=== PATIENT | female | born 1945 | race Caucasian/White ===

== ENCOUNTER → 2017-12-22 11:36 | Outpatient (CLI) | payer MEDICARE, OTHER, SELFPAY ==
[2017-12-22 12:44] LABS: Amphetamine Urine VISTA NEGATIVE (<1000 ng/mL); Barbiturate Urine VISTA NEGATIVE (< 200 ng/mL); Benzodiazepine Urine VISTA NEGATIVE (< 200 ng/mL); Cocaine Urine VISTA NEGATIVE (< 300 ng/mL); Ecstacy Urine VISTA NEGATIVE (< 500 ng/mL); Methadone Urine VISTA NEGATIVE (< 300 ng/mL); PCP Urine VISTA NEGATIVE (< 25 ng/mL); THC Urine VISTA NEGATIVE (< 50 ng/mL); Vista UDS pH Range 5
== END ==
PROVIDERS: Family Provider Preventive Medicine Occupational Medicine; PCP Preventive Medicine Occupational Medicine; Visit Provider Anesthesiology Pain Medicine
DX: F11.20 Opioid dependence, uncomplicated (principal)
CPT/HCPCS: 80307

== ENCOUNTER → 2018-05-04 14:45 | Outpatient (CLI) | payer MEDICARE, OTHER, SELFPAY ==
--- NOTE | 2018-05-04 14:49 | RAD_ITS ---
STUDY: X-RAY - LEFT SHOULDER REASON FOR EXAM: Pain. TECHNIQUE: 3 view(s) of the shoulder. COMPARISON: None. FINDINGS: There are marginal osteophytes, joint space narrowing and subchondral cystic change/sclerosis of the humeral head. There is mild acromioclavicular arthrosis. Normal acromion. There is narrowing of acromiohumeral distance suggestive of rotator cuff pathology. Normal visualized pulmonary apex. RAD/Shoulder min 2 Views IMPRESSION: Glenohumeral arthrosis. Mild acromioclavicular arthrosis. Narrowing of acromiohumeral distance suggestive of rotator cuff pathology. Electronically Signed: Cholo Pascual MD at 14:50 EST Tel , Service support ,
--- OUTSIDE RECORDS SUMMARY | 2018-08-06 02:57 | XMS RPT_ITS ---
:1945 Author Organization OHIP Support Name Relationship Address Phone PIYUSH MORELOS Unavailable Unavailable + VALERIE LIVE Unavailable Unavailable + CHI MORELOS Unavailable Unavailable + [place] [address] R Unavailable Unavailable Unavailable PIYUSH MORELOS Unavailable Unavailable + VALERIE LIVE Unavailable Unavailable + PIYUSH MORELOS Unavailable [address] + [place] [address] R Unavailable Unavailable Unavailable CHI MORELOS Unavailable . + ., [place] . R Unavailable Unavailable Unavailable PIYUSH MORELOS Unavailable Unavailable + VALERIE LIVE Unavailable Unavailable + DYAN LIVEEN Unavailable Unavailable + PIYUSH MORELOS Unavailable Unavailable + ELIZABETH PIYUSH Unavailable Unavailable + VALERIE LIVE Unavailable Unavailable + ELIZABETHFINESSEPIYUSH Unavailable Unavailable + ELIZABETH PIYUSH Unavailable Unavailable + VALERIE LIVE Unavailable Unavailable + ELIZABETH, PIYUSH Unavailable Unavailable + ELIZABETH, PIYUSH Unavailable Unavailable + DYAN LIVEEN Unavailable Unavailable + ELIZABETH, PIYUSH Unavailable Unavailable + ELIZABETH, PIYUSH Unavailable Unavailable + DYAN LIVEEN Unavailable Unavailable + ELIZABETH PIYUSH Unavailable Unavailable + ELIZABETH, PIYUSH Unavailable Unavailable + VALERIE LIVE Unavailable Unavailable + ELIZABETH, PIYUSH Unavailable [address] + [place] [address] R Unavailable Unavailable Unavailable ELIZABETH, PIYUSH Unavailable Unavailable + ELIZABETH, PIYUSH Unavailable Unavailable + CALOS, VALERIE Unavailable Unavailable + ELIZABETH, PIYUSH Unavailable Unavailable + ELIZABETH, PIYUSH Unavailable Unavailable + CALOS, VALERIE Unavailable Unavailable + ELIZABETH, PIYUSH Unavailable Unavailable + ELIZABETH, PIYUSH Unavailable Unavailable + CALOS, VALERIE Unavailable Unavailable + ELIZABETH, PIYUSH Unavailable Unavailable + ELIZABETH, PIYUSH Unavailable Unavailable + CALOS, VALERIE Unavailable Unavailable + ELIZABETH, PIYUSH Unavailable Unavailable + ELIZABETH, PIYUSH Unavailable Unavailable + CALOS, VALERIE Unavailable Unavailable + ELIZABETH, PIYUSH Unavailable Unavailable + ELIZABETH, PIYUSH Unavailable Unavailable + CALOS, VALERIE Unavailable Unavailable + ELIZABETH, PIYUSH Unavailable Unavailable + ELIZABETH, PIYUSH Unavailable Unavailable + CALOS, VALERIE Unavailable Unavailable + ELIZABETH, PIYUSH Unavailable Unavailable + ELIZABETH, PIYUSH Unavailable Unavailable + CALOS, VALERIE Unavailable Unavailable + Care Team Providers Name Role Phone TESTRAIVON CARVAJAL Referring Unavailable TESTRAKEIVON Attending Unavailable TESTRAIVON CARVAJAL Referring Unavailable TESTRAIVON CARVAJAL Referring Unavailable TESTRAWEI, IVON Attending Unavailable TESTIVON PACE Referring Unavailable LINA VALERIO MD Attending Unavailable RAISA FLEMING Primary Care Unavailable LINA VALERIO MD Attending Unavailable RAISA FLEMING Primary Care Unavailable RAISA FLEMING Attending Unavailable RAISA FLEMING Referring Unavailable RAISA FLEMING Primary Care Unavailable LINA VALERIO MD Attending Unavailable RAISA FLEMING Primary Care Unavailable TAE PONCE MD Attending Unavailable CARLOSRAISA Primary Care Unavailable LINA VALERIO MD Attending Unavailable CARLOSRAISA Primary Care Unavailable LINA VALERIO MD Attending Unavailable CARLOS, RAISA Primary Care Unavailable LINA VALERIO MD Attending Unavailable CARLOSRAISA Primary Care Unavailable DEANGELO MORILLO MD Attending Unavailable RAISA FLEMING Primary Care Unavailable DEANGELO MORILLO MD Attending Unavailable CRALOS, RAISA Primary Care Unavailable CARLOS, RAISA Primary Care Unavailable GORDON MAHARAJ MD Admitting Unavailable GORDON MAHARAJ MD Attending Unavailable RAISA FLEMING Consulting Unavailable GORDON MAHARAJ MD Consulting Unavailable GORDON SHEEHAN Consulting Unavailable JOSÉ MIGUEL PERSAUD Attending Unavailable CARLOS, RAISA Primary Care Unavailable CARLOS, RAISA Attending Unavailable CARLOS, RAISA Primary Care Unavailable DEANGELO MORILLO MD Attending Unavailable CARLOS, RAISA Primary Care Unavailable DEANGELO MORILLO MD Consulting Unavailable DEANGELO MORILLO MD Admitting Unavailable CONRAD ELMORE MD Consulting Unavailable RAISA FLEMING Attending Unavailable CARLOS, RAISA Primary Care Unavailable CARLOS, RAISA Primary Care Unavailable YOHAN ORTIZ MD. RAISA Kendrick Admitting Unavailable YOHAN ORTIZ MD. RAISA Kendrick Attending Unavailable Kym Live Attending Unavailable Raisa Fleming Referring Unavailable Kym Live Attending Unavailable Kym Live Referring Unavailable Raisa Fleming Primary Care Unavailable Kym Live Attending Unavailable Kym Live Referring Unavailable Raisa Fleming Primary Care Unavailable Klever Johnson Attending Unavailable Klever Johnson Referring Unavailable Raisa Fleming Primary Care Unavailable PROBLEMS PROBLEMS DATE TYPE CONDITION / CODE ATTENDING STATUS SOURCE 05/04/2018 Unknown M25.512 - Pain in [place], Active [facility] left shoulder / [facility] M25.512(ICD-10) Hospital Repository 02/17/2018 Active Charcot's joint, NA Active [facility] left ankle and foot [facility] [place] / M14.672(ICD-10) Repository 02/17/2018 Active Charcot's joint, NA Active [facility] right ankle and [facility] [place] foot / Repository M14.671(ICD-10) 02/17/2018 Active Vitamin D NA Active [facility] deficiency, [facility] [place] unspecified / Repository E55.9(ICD-10) 02/17/2018 Active Pain, unspecified / NA Active [facility] R52(ICD-10) [facility] [place] Repository 12/22/2017 Unknown F11.20 - Opioid Basali, [place] Active [facility] dependence, Community uncomplicated / Hospital F11.20(ICD-10) Repository PROCEDURES PROCEDURES No Procedure Records FoundRESULTS RESULTS CBC Collected: 06/09/2018 Status: F Source: [facility] 5:12 AM [facility] REPOSITORY TYPE CODE TESTS RESULT OUT OF REFERENCE UNITS RANGE LAB WBC(LOINC) 4.60-10.80 10 3/mcL WBC 10.20 LAB RBCCT(LOINC 4.20-5.40 10 6/mcL ) RBC 5.12 LAB HGB(LOINC) 12.0-16.0 G/dL Hgb 13.5 LAB HCT(LOINC) 37.0-47.0 % Hct 41.0 LAB MCV(LOINC) 80.0-94.0 fL MCV 80.1 LAB MCH(LOINC) 27.0-31.2 pg Low MCH 26.3 LAB MCHC(LOINC) 33.0-37.0 G/dL Low MCHC 32.8 LAB RDW(LOINC) 11.5-14.5 % RDW 14.2 LAB PLT(LOINC) 130-400 10 3/mcL Platelet 163 LAB MPV(LOINC) 7.4-10.4 fL MPV 10.3 Performed By: #### CBC, ADIFF, ANEU #### [address] [address] #### MG, CMP, GFR #### [address] [address] .AUTO DIFF Collected: 06/09/2018 Status: F Source: [facility] 5:12 AM [facility] REPOSITORY TYPE CODE TESTS RESULT OUT OF REFERENCE UNITS RANGE LAB KRISTIN(LOINC) 37.0-80.0 % Neutrophil % 77.3 LAB LYM(LOINC) 10.0-50.0 % Lymphocyte % 13.4 LAB MON(LOINC) 1.7-13.0 % Monocyte % 8.3 LAB EO(LOINC) 0.0-7.0 % Eosinophil % 0.5 LAB BAS(LOINC) 0.0-2.5 % Basophil % 0.5 LAB ABLYM(LOIN 0.77-3.85 10 3/mcL C) Lymphocyte, 1.40 Absolute LAB BENNY(LOINC 0.15-1.00 10 3/mcL ) Monocyte, 0.80 Absolute LAB AEOS(LOINC 0.00-0.40 10 3/mcL ) Eosinophil, 0.10 Absolute LAB ABAS(LOINC 0.00-0.19 10 3/mcL ) Basophil, 0.10 Absolute Performed By: #### CBC, ADIFF, ANEU #### [place] [id number] #### MG, CMP, GFR #### [place] [address] .NEUABS Collected: 06/09/2018 Status: F Source: [facility] 5:12 AM [facility] REPOSITORY TYPE CODE TESTS RESULT OUT OF REFERENCE UNITS RANGE LAB ANEU(LOINC) 2.85-6.16 10 3/mcL High Neutrophil, 7.80 Absolute Performed By: #### CBC, ADIFF, ANEU #### [place] [address] #### MG, CMP, GFR #### [place] [address] MG Collected: 06/09/2018 Status: F Source: [facility] 5:12 AM [facility] REPOSITORY TYPE CODE TESTS RESULT OUT OF REFERENCE UNITS RANGE LAB MG(LOINC) 1.8-2.4 mg/dL High Magnesium Lvl 2.5 Performed By: #### CBC, ADIFF, ANEU #### [place] [id number] #### MG, CMP, GFR #### [place] [address] CMP Collected: 06/09/2018 Status: F Source: [facility] 5:12 AM [facility] REPOSITORY TYPE CODE TESTS RESULT OUT OF REFERENCE UNITS RANGE LAB GLU(LOINC) 83-110 mg/dL Glucose Level 103 LAB NA(LOINC) 136-145 mmol/L Sodium Level 143 LAB K(LOINC) 3.5-5.1 mmol/L Low Potassium Level 3.3 LAB CL(LOINC) 98-107 mmol/L Chloride 106 LAB CO2(LOINC) 23-31 mmol/L CO2 28 LAB EBAL(LOINC mEq/L ) Electrolyte Balance 9.0 LAB BUN(LOINC) 7-18 mg/dL BUN High 29 LAB CRE(LOINC) 0.55-1.02 mg/dL Creatinine Lvl (s) 0.92 LAB BC(LOINC) 7-27 ratio High BUN/Creatinine 32 Ratio LAB CA(LOINC) 8.4-10.2 mg/dL Low Calcium Lvl 8.2 LAB PROT(LOINC 6.4-8.2 G/dL ) Low Total Protein 5.9 LAB ALB(LOINC) 3.4-4.8 G/dL Low Albumin Level 2.7 LAB GLB(LOINC) G/dL Globulin 3.2 LAB AG(LOINC) 1.1-2.5 ratio Low A/G Ratio 0.8 LAB BILT(LOINC 0.2-1.0 mg/dL ) Bili Total 0.6 LAB AP(LOINC) 40-135 U/L Low Alk Phos 36 LAB AST(LOINC) 10-40 U/L AST/SGOT High 60 LAB ALT(LOINC) 10-35 U/L ALT/SGPT 30 Performed By: #### CBC, ADIFF, ANEU #### [address] [address] #### MG, CMP, GFR #### [address] [address] .GFR Collected: 06/09/2018 Status: F Source: [facility] 5:12 AM [facility] REPOSIT[facility] TYPE CODE TESTS RESULT OUT OF REFERENCE UNITS RANGE LAB GFRAA(LOINC ml/min/1.73 ) sqm GFR 73 Armenian Result Comment: GFR Population mean for , Non- Americans Ages 20-29 = 116 mL/min/1.73 sq.m. Ages 30-39 = 107 mL/min/1.73 sq.m. Ages 40-49 = 99 mL/min/1.73 sq.m. Ages 50-59 = 93 mL/min/1.73 sq.m. Ages 60-69 = 85 mL/min/1.73 sq.m. Ages 70+ = 75 mL/min/1.73 sq.m. Chronic Kidney Disease: Less than 60 mL/min/1.73 square meters End Stage Renal Disease: Less than 15 mL/min/1.73 square meters LAB GFRNO(LOINC) ml/min/1.73sqm GFR Non- 60 Result Comment: GFR Population mean for , Non- Americans Ages 20-29 = 116 mL/min/1.73 sq.m. Ages 30-39 = 107 mL/min/1.73 sq.m. Ages 40-49 = 99 mL/min/1.73 sq.m. Ages 50-59 = 93 mL/min/1.73 sq.m. Ages 60-69 = 85 mL/min/1.73 sq.m. Ages 70+ = 75 mL/min/1.73 sq.m. Chronic Kidney Disease: Less than 60 mL/min/1.73 square meters End Stage Renal Disease: Less than 15 mL/min/1.73 square meters Performed By: #### CBC, ADIFF, ANEU #### [address] [address] #### MG, CMP, GFR #### [place] [address] LAC Collected: 06/08/2018 Status: F Source: [facility] 9:02 PM [facility] REPOSITORY TYPE CODE TESTS RESULT OUT OF REFERENCE UNITS RANGE LAB LAC(LOINC) 0.4-2.0 mmol/L Lactic Acid 1.0 Lvl Performed By: #### LAC #### [place] [address] LAC Collected: 06/08/2018 Status: F Source: [facility] 3:38 PM [facility] REPOSITORY TYPE CODE TESTS RESULT OUT OF REFERENCE UNITS RANGE LAB LAC(LOINC) 0.4-2.0 mmol/L High Lactic Acid 3.1 Lvl Performed By: #### LAC #### [place] [address] CK Collected: 06/08/2018 Status: F Source: [facility] 10:47 AM [facility] REPOSITORY TYPE CODE TESTS RESULT OUT OF RANGE REFERENCE UNITS LAB CK(LOINC) 26-192 U/L High CPK 1286 Performed By: #### CK #### [place] [address] Observed: 06/08/2018 Status: P Source: [facility] 10:47 AM [facility] REPOSITORY . MICRO - Microbiology PROCEDURE: Blood Culture (bacterial) [*1] SOURCE: Blood BODY SITE: COLLECTED DATE/TIME: 06/08/2018 10:47 EST RECEIVED DATE/TIME: 06/08/2018 15:26 EST START DATE/TIME: 06/08/2018 15:27 EST FREE TEXT SOURCE: PRELIMINARY REPORTS Preliminary Report [] Verified Date/Time/Personnel: 06/08/2018 16:00 EST Culture has been received in lab and is no growth to date. Routine cultures are held for 5 days. Performing Locations *1: This test was performed at: [address] Performed By: #### CBL #### [place] [address] Observed: 06/08/2018 Status: P Source: [facility] 10:47 AM [facility] REPOSITORY . MICRO - Microbiology PROCEDURE: Blood Culture (bacterial) [*1] SOURCE: Blood BODY SITE: COLLECTED DATE/TIME: 06/08/2018 10:47 EST RECEIVED DATE/TIME: 06/08/2018 15:26 EST START DATE/TIME: 06/08/2018 15:27 EST FREE TEXT SOURCE: PRELIMINARY REPORTS Preliminary Report [] Verified Date/Time/Personnel: 06/08/2018 16:00 EST Culture has been received in lab and is no growth to date. Routine cultures are held for 5 days. Performing Locations *1: This test was performed at: [address] Performed By: #### CBL #### [place] [address] Observed: 06/08/2018 Status: P Source: [facility] 10:47 AM [facility] REPOSITORY . MICRO - Microbiology PROCEDURE: Urine Culture [*1] SOURCE: Urine, Clean Catch BODY SITE: COLLECTED DATE/TIME: 06/08/2018 10:47 EST RECEIVED DATE/TIME: 06/08/2018 15:19 EST START DATE/TIME: 06/08/2018 15:19 EST FREE TEXT SOURCE: PRELIMINARY REPORTS Preliminary Report [] Verified Date/Time/Personnel: 06/09/2018 13:58 EST Culture results pending. Performing Locations *1: This test was performed at: [facility], [address] [place] [address], [id number] , [facility] Performed By: #### CUR #### [address] [address] [address] HEAD OR BRAIN W/O Observed: 06/08/2018 Status: F Source: [facility] CONTRAST 10:10 AM [facility] REPOSITORY ORIGINAL CT HEAD OR BRAIN W/O CONTRAST Clinical Statement: Altered mental status. TECHNIQUE: Axial CT images from skull base to vertex without IV contrast. This exam was performed according to our departmental dose optimization program, and includes the following measures where appli cable: automated exposure control, adjustment of the mAs and/or kVp according to patient size and/or exam, and an iterative reconstruction algorithm. COMPARISON: 03/20/2017 FINDINGS: There is no acute intracranial hemorrhage, mass, mass effect or abnormal extra-axial fluid collection. No CT evidence for acute infarction. The density in the larger dural venous sinuses is gr ossly normal. The ventricles are are stable. There is mild cerebral volume loss. 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 The skull base and calvarium demonstrate no abnormality. The included paranasal sinuses and mastoid air cells are clear. IMPRESSION: No acute intracranial abnormality. Interpreted By: Gus Ospina Preliminary Report By: Gus Ospina Electronically Signed By: Gus Ospina Dictated Date: 06/08/2018 10:21:03 AM Prelim Date: 06/08/2018 10:21:03 AM Sign Date: 06/08/2018 10:22:44 AM XR CHEST 1 VIEW Observed: 06/08/2018 Status: F Source: [facility] 10:10 AM [facility] REPOSITORY ORIGINAL XR CHEST 1 VIEW PORTABLE AP TIME: 10:03:34 CLINICAL STATEMENT: SOB. COMPARISON: CT thorax-10/08/2014, CXR-06/08/2018, 01/21/2018 QUALITY: Evaluation is technically difficult due to patient lordosis and body habitus. FINDINGS: No focal consolidation, pleural effusion, or pneumothorax is identified. The cardiomediastinal contours are unchanged but poorly visualized. No acute displaced fractures are identified. Degenerative rehana nges are noted in the shoulder joints. Surgical sebastián are noted projecting over the upper thorax. IMPRESSION: No acute findings. I have personally reviewed the images of this examination and agree with the resident's findings and interpretation. Interpreted By: Gus Vega MD Preliminary Report By: Wilbur Kim DO Electronically Signed By: Gus Vega MD Dictated Date: 06/08/2018 10:17:27 AM Prelim Date: 06/08/2018 10:55:29 AM Sign Date: 06/08/2018 11:06:20 AM CBC Collected: 06/08/2018 Status: C Source: [facility] 9:27 AM [facility] REPOSITORY TYPE CODE TESTS RESULT OUT OF RANGE REFERENCE UNITS LAB WBC(LOINC) 4.60-10.80 10 3/mcL Abnormal Alert WBC 22.30 LAB RBCCT(LOIN 4.20-5.40 10 6/mcL C) High RBC 6.01 LAB HGB(LOINC) 12.0-16.0 G/dL Hgb 15.9 LAB HCT(LOINC) 37.0-47.0 % High Hct 48.1 LAB MCV(LOINC) 80.0-94.0 fL MCV 80.0 LAB MCH(LOINC) 27.0-31.2 pg Low MCH 26.4 LAB MCHC(LOINC 33.0-37.0 G/dL ) MCHC 33.0 LAB RDW(LOINC) 11.5-14.5 % RDW 14.3 LAB PLT(LOINC) 130-400 10 3/mcL Platelet 204 LAB MPV(LOINC) 7.4-10.4 fL MPV 9.8 Performed By: #### CBC, DIFF, MORPH #### [place] [address] [place], [place] [address] #### TROP, MG, CMP, GFR, LAC #### [address] [address] TROP Collected: 06/08/2018 Status: F Source: [facility] 9:27 AM [facility] REPOSITORY TYPE CODE TESTS RESULT OUT OF REFERENCE UNITS RANGE LAB TROP(LOINC) 0.000-0.040 ng/mL Troponin <0.020 Result Comment: Troponin I reference range: 0.00-0.040 ng/mL Negative and non-diagnostic. >0.040 ng/mL Consistent with cardiac damage, increased clinical risk and possibility of myocardial infarction. Serial measurements, a rise & fall in test results, clinical history, appropriate symptoms and/or ECG changes may help assess possibility of MO. *Other non-acute coronary syndrome conditions such as CHF, myocarditis, pulmonary emboli, sepsis and cardiac surgery could result in myocardial damage and increased troponin levels. Performed By: #### CBC, DIFF, MORPH #### [place] [address] [place], [place] [address] #### TROP, MG, CMP, GFR, LAC #### [address] [address] MG Collected: 06/08/2018 Status: F Source: [facility] 9:27 AM [facility] REPOSITORY TYPE CODE TESTS RESULT OUT OF REFERENCE UNITS RANGE LAB MG(LOINC) 1.8-2.4 mg/dL Low Magnesium Lvl 1.5 Performed By: #### CBC, DIFF, MORPH #### [place] [address] [place], [place] [address] #### TROP, MG, CMP, GFR, LAC #### [address] [address] CMP Collected: 06/08/2018 Status: F Source: [facility] 9:27 AM [facility] REPOSITORY TYPE CODE TESTS RESULT OUT OF REFERENCE UNITS RANGE LAB GLU(LOINC) 83-110 mg/dL Glucose High Level 159 LAB NA(LOINC) 136-145 mmol/L Sodium Level 141 LAB K(LOINC) 3.5-5.1 mmol/L Potassium Level 3.5 LAB CL(LOINC) 98-107 mmol/L Chloride 100 LAB CO2(LOINC) 23-31 mmol/L CO2 23 LAB EBAL(LOINC mEq/L ) Electrolyte Balance 18.0 LAB BUN(LOINC) 7-18 mg/dL BUN High 23 LAB CRE(LOINC) 0.55-1.02 mg/dL Creatinine High Lvl (s) 1.58 LAB BC(LOINC) 7-27 ratio BUN/Creatinine 15 Ratio LAB CA(LOINC) 8.4-10.2 mg/dL Calcium Lvl 9.3 LAB PROT(LOINC 6.4-8.2 G/dL ) Total Protein 8.2 LAB ALB(LOINC) 3.4-4.8 G/dL Albumin Level 4.0 LAB GLB(LOINC) G/dL Globulin 4.2 LAB AG(LOINC) 1.1-2.5 ratio Low A/G Ratio 1.0 LAB BILT(LOINC 0.2-1.0 mg/dL ) Bili Total High 1.8 LAB AP(LOINC) 40-135 U/L Alk Phos 54 LAB AST(LOINC) 10-40 U/L AST/SGOT High 54 LAB ALT(LOINC) 10-35 U/L ALT/SGPT 29 Performed By: #### CBC, DIFF, MORPH #### [facility] [address] [place] [address] #### TROP, MG, CMP, GFR, LAC #### [address] [address] .GFR Collected: 06/08/2018 Status: F Source: [facility] 9:27 AM [facility] REPOSITORY TYPE CODE TESTS RESULT OUT OF REFERENCE UNITS RANGE LAB GFRAA(LOINC ml/min/1.73 ) sqm GFR 39 Armenian Result Comment: GFR Population mean for , Non- Americans Ages 20-29 = 116 mL/min/1.73 sq.m. Ages 30-39 = 107 mL/min/1.73 sq.m. Ages 40-49 = 99 mL/min/1.73 sq.m. Ages 50-59 = 93 mL/min/1.73 sq.m. Ages 60-69 = 85 mL/min/1.73 sq.m. Ages 70+ = 75 mL/min/1.73 sq.m. Chronic Kidney Disease: Less than 60 mL/min/1.73 square meters End Stage Renal Disease: Less than 15 mL/min/1.73 square meters LAB GFRNO(LOINC) ml/min/1.73sqm GFR Non- 32 Result Comment: GFR Population mean for , Non- Americans Ages 20-29 = 116 mL/min/1.73 sq.m. Ages 30-39 = 107 mL/min/1.73 sq.m. Ages 40-49 = 99 mL/min/1.73 sq.m. Ages 50-59 = 93 mL/min/1.73 sq.m. Ages 60-69 = 85 mL/min/1.73 sq.m. Ages 70+ = 75 mL/min/1.73 sq.m. Chronic Kidney Disease: Less than 60 mL/min/1.73 square meters End Stage Renal Disease: Less than 15 mL/min/1.73 square meters Performed By: #### CBC, DIFF, MORPH #### [address] [address] #### TROP, MG, CMP, GFR, LAC #### [address] [address] .MANUAL DIFF Collected: 06/08/2018 Status: F Source: [facility] 9:27 AM [facility] REPOSITORY TYPE CODE TESTS RESULT OUT OF REFERENCE UNITS RANGE LAB NEUM(LOINC 37.0-80.0 % ) High Neutrophil %, 82.0 Manual LAB LYMM(LOINC 10.0-50.0 % ) Low Lymphocyte %, 4.0 Manual LAB MONM(LOINC 1.7-13.0 % ) Monocyte %, Manual 4.0 LAB EOM(LOINC) 0.0-7.0 % Eosinophil %, 0.0 Manual LAB BASM(LOINC 0.0-2.5 % ) Basophil %, Manual 0.0 LAB BAND(LOINC 0.0-5.0 % ) Bands High 10.0 LAB ANEUM(LOIN 2.85-6.16 10 3/mcL C) High Neutrophil, Abs 20.50 Manual LAB ABLYMM(NIKHIL 0.77-3.85 10 3/mcL NC) Lymphocyte, Abs 0.90 Manual LAB AMONM(LOIN 0.15-1.00 10 3/mcL C) Monocyte, Abs 0.90 Manual LAB AEOSM(LOIN 0.00-0.40 10 3/mcL C) Eosinophil, Abs 0.00 Manual LAB ABASM(LOIN 0.00-0.19 10 3/mcL C) Basophil, Abs 0.00 Manual Performed By: #### CBC, DIFF, MORPH #### [address] [address] #### TROP, MG, CMP, GFR, LAC #### [address] [address] .MORPH Collected: 06/08/2018 Status: F Source: [facility] 9:27 AM [facility] REPOSITORY TYPE CODE TESTS RESULT OUT OF REFERENCE UNITS RANGE LAB PLTE(LOINC ) Platelet Normal Estimate LAB TGR(LOINC) Toxic Gran Moderate Performed By: #### CBC, DIFF, MORPH #### [place] [address] [place], [place] [address] #### TROP, MG, CMP, GFR, LAC #### [address] [address] LAC Collected: 06/08/2018 Status: F Source: [facility] 9:27 AM [facility] REPOSITORY TYPE CODE TESTS RESULT OUT OF REFERENCE UNITS RANGE LAB LAC(LOINC) 0.4-2.0 mmol/L High Lactic Acid 3.1 Lvl Performed By: #### CBC, DIFF, MORPH #### [address] [address] #### TROP, MG, CMP, GFR, LAC #### [address] [address] UA Collected: 06/08/2018 Status: F Source: [facility] 9:27 AM [facility] REPOSITORY TYPE CODE TESTS RESULT OUT OF RANGE REFERENCE UNITS LAB SPCUA(LOIN C) UA Specimen Type Catheter LAB CLRUA(LOIN C) Unknown UA Color Red LAB APPUA(LOIN Clear C) Unknown UA Appear Turbid LAB SGUA(LOINC ) UA X Spec Grav Result Comment: Unable to perform due to color interference LAB GLUA(LOINC) Negative mg/dL UA Glucose Negative LAB BILUA(LOINC) X UA Bili Result Comment: Unable to perform due to color interference LAB KETUA(LOINC) mg/dL UA Ketones X Result Comment: Unable to perform due to color interference LAB BLDUA(LOINC) Negative Unknown UA Blood Large LAB PHUA(LOINC) UA pH X Result Comment: Unable to perform due to color interference LAB PROUA(LOINC) mg/dL UA Protein X Result Comment: Unable to perform due to color interference LAB UROUA(LOINC) E.U./dL UA Urobilinogen X Result Comment: Unable to perform due to color interference LAB NITUA(LOINC) UA Nitrite X Result Comment: Unable to perform due to color interference LAB LEUUA(LOINC) UA Leuk Est X Result Comment: Unable to perform due to color interference Performed By: #### UA, UAMICAO #### [address] [address] .URINALYSIS MICROSCOPIC Collected: 06/08/2018 Status: F Source: [facility] 9:27 AM [facility] REPOSITORY TYPE CODE TESTS RESULT OUT OF RANGE REFERENCE UNITS LAB WBCUA(LOIN None Seen /hpf C) Unknown UA WBC LOADED LAB RBCUA(LOIN None Seen /hpf C) Unknown UA RBC LOADED LAB EPIUA(LOIN None Seen /hpf C) Unknown UA Squam Epithelial 5-10 LAB MUCUA(LOIN /hpf C) UA Mucous 3+ LAB BACUA(LOIN /hpf C) Unknown UA Bacteria 4+ LAB FGRNC(LOIN /lpf C) Unknown UA Fine Granular Casts 0-5 Performed By: #### UA, UAMICAO #### [address] [address] CBC Collected: 05/06/2018 Status: F Source: [facility] 4:28 PM [facility] REPOSITORY TYPE CODE TESTS RESULT OUT OF REFERENCE UNITS RANGE LAB WBC(LOINC) 4.60-10.80 10 3/mcL WBC 8.20 LAB RBCCT(LOINC 4.20-5.40 10 6/mcL ) RBC 5.33 LAB HGB(LOINC) 12.0-16.0 G/dL Hgb 14.3 LAB HCT(LOINC) 37.0-47.0 % Hct 43.9 LAB MCV(LOINC) 80.0-94.0 fL MCV 82.4 LAB MCH(LOINC) 27.0-31.2 pg Low MCH 26.9 LAB MCHC(LOINC) 33.0-37.0 G/dL Low MCHC 32.7 LAB RDW(LOINC) 11.5-14.5 % High RDW 15.1 LAB PLT(LOINC) 130-400 10 3/mcL Platelet 175 LAB MPV(LOINC) 7.4-10.4 fL MPV 9.9 Performed By: #### CBC, ADIFF, ANEU #### [address] [address] #### CMP, TSH, GFR #### [address] [address] .AUTO DIFF Collected: 05/06/2018 Status: F Source: [facility] 4:28 [facility] HEALTH REPOSITORY TYPE CODE TESTS RESULT OUT OF REFERENCE UNITS RANGE LAB KRISTIN(LOINC) 37.0-80.0 % Neutrophil % 58.6 LAB LYM(LOINC) 10.0-50.0 % Lymphocyte % 30.0 LAB MON(LOINC) 1.7-13.0 % Monocyte % 9.1 LAB EO(LOINC) 0.0-7.0 % Eosinophil % 1.8 LAB BAS(LOINC) 0.0-2.5 % Basophil % 0.5 LAB ABLYM(LOIN 0.77-3.85 10 3/mcL C) Lymphocyte, 2.50 Absolute LAB BENNY(LOINC 0.15-1.00 10 3/mcL ) Monocyte, 0.70 Absolute LAB AEOS(LOINC 0.00-0.40 10 3/mcL ) Eosinophil, 0.10 Absolute LAB ABAS(LOINC 0.00-0.19 10 3/mcL ) Basophil, 0.00 Absolute Performed By: #### CBC, ADIFF, ANEU #### [address] [address] #### CMP, TSH, GFR #### [place] [address] .NEUABS Collected: 05/06/2018 Status: F Source: [facility] 4:28 [facility] REPOSITORY TYPE CODE TESTS RESULT OUT OF REFERENCE UNITS RANGE LAB ANEU(LOINC) 2.85-6.16 10 3/mcL Neutrophil, 4.80 Absolute Performed By: #### CBC, ADIFF, ANEU #### [address] [address] #### CMP, TSH, GFR #### [place] [address] CMP Collected: 05/06/2018 Status: F Source: [facility] 4:28 [facility] REPOSITORY TYPE CODE TESTS RESULT OUT OF REFERENCE UNITS RANGE LAB GLU(LOINC) 83-110 mg/dL Glucose Level 86 LAB NA(LOINC) 136-145 mmol/L Sodium Level 143 LAB K(LOINC) 3.5-5.1 mmol/L Potassium Level 4.4 LAB CL(LOINC) 98-107 mmol/L Chloride 103 LAB CO2(LOINC) 23-31 mmol/L CO2 High 33 LAB EBAL(LOINC mEq/L ) Electrolyte Balance 7.0 LAB BUN(LOINC) 7-18 mg/dL BUN High 20 LAB CRE(LOINC) 0.55-1.02 mg/dL Creatinine Lvl (s) 0.86 LAB BC(LOINC) 7-27 ratio BUN/Creatinine 23 Ratio LAB CA(LOINC) 8.4-10.2 mg/dL Calcium Lvl 8.8 LAB PROT(LOINC 6.4-8.2 G/dL ) Total Protein 7.5 LAB ALB(LOINC) 3.4-4.8 G/dL Albumin Level 3.8 LAB GLB(LOINC) G/dL Globulin 3.7 LAB AG(LOINC) 1.1-2.5 ratio Low A/G Ratio 1.0 LAB BILT(LOINC 0.2-1.0 mg/dL ) Bili Total 0.3 LAB AP(LOINC) 40-135 U/L Alk Phos 41 LAB AST(LOINC) 10-40 U/L AST/SGOT 26 LAB ALT(LOINC) 10-35 U/L ALT/SGPT 22 Performed By: #### CBC, ADIFF, ANEU #### [address] [address] #### CMP, TSH, GFR #### [place] [address] TSH Collected: 05/06/2018 Status: F Source: [facility] 4:28 PM [facility] REPOSITORY TYPE CODE TESTS RESULT OUT OF RANGE REFERENCE UNITS LAB TSH(LOINC) 0.36-3.74 mcIU/mL TSH 1.11 Performed By: #### CBC, ADIFF, ANEU #### [address] [address] #### CMP, TSH, GFR #### [address] [address] .GFR Collected: 05/06/2018 Status: F Source: [facility] 4:28 PM [facility] REPOSITORY TYPE CODE TESTS RESULT OUT OF REFERENCE UNITS RANGE LAB GFRAA(LOINC ml/min/1.73 ) sqm GFR 79 Armenian Result Comment: GFR Population mean for , Non- Americans Ages 20-29 = 116 mL/min/1.73 sq.m. Ages 30-39 = 107 mL/min/1.73 sq.m. Ages 40-49 = 99 mL/min/1.73 sq.m. Ages 50-59 = 93 mL/min/1.73 sq.m. Ages 60-69 = 85 mL/min/1.73 sq.m. Ages 70+ = 75 mL/min/1.73 sq.m. Chronic Kidney Disease: Less than 60 mL/min/1.73 square meters End Stage Renal Disease: Less than 15 mL/min/1.73 square meters LAB GFRNO(LOINC) ml/min/1.73sqm GFR Non- 65 Result Comment: GFR Population mean for , Non- Americans Ages 20-29 = 116 mL/min/1.73 sq.m. Ages 30-39 = 107 mL/min/1.73 sq.m. Ages 40-49 = 99 mL/min/1.73 sq.m. Ages 50-59 = 93 mL/min/1.73 sq.m. Ages 60-69 = 85 mL/min/1.73 sq.m. Ages 70+ = 75 mL/min/1.73 sq.m. Chronic Kidney Disease: Less than 60 mL/min/1.73 square meters End Stage Renal Disease: Less than 15 mL/min/1.73 square meters Performed By: #### CBC, ADIFF, ANEU #### Sally [address] [address] #### CMP, TSH, GFR #### [address] [address] ORTHOPEDIC VISIT Observed: 05/04/2018 Status: F Source: [facility] 4:15 PM [facility] REPOSITORY [facility] [address] [place] [address] OFFICE VISIT Date of Service: 05/04/18 MR#: [id number] Acct: [id number] Name: LAUREEN MORELOS Rep #: [id number] : 1945 Provider: Kym Live DO Age/Sex: 72/F Location: [facility] Status: Signed Intake Intake Visit Reasons: LEFT SHOULDER Is patient in pain?: Yes Pain scale (1-10): 8 Allergies No Known Allergies Allergy (Unverified 05/04/18 14:37) Medications Aclidinium [place] [Tudorza Pressair] 400 mcg IH BID 07/10/13 [History Confirmed 03/14/14] Budesonide/Formoterol 160/4.5 [Symbicort 160/4.5 Mcg Inhaler (SP)] 2 puff INHALATION BID 07/10/13 [History Confirmed 03/14/14] Celecoxib [Celebrex] 100 mg PO DAILY 07/10/13 [History Confirmed 03/14/14] Duloxetine Hcl [Cymbalta] 60 mg PO QHS 07/10/13 [History Confirmed 03/14/14] Hydrocodone/Acetaminophen [Vicodin 5-300 mg Tablet] 1 tab PO Q6H PRN PRN 07/10/13 [History Confirmed 03/14/14] Levothyroxine [Synthroid] 150 mcg PO DAILY 07/10/13 [History Confirmed 03/14/14] Lisinopril 20 mg PO QHS 07/10/13 [History Confirmed 03/14/14] Metoprolol Tartrate [Lopressor (beta ariel)] 50 mg PO BID 07/10/13 [History Confirmed 03/14/14] Pramipexole Di-HCl [Mirapex] 1.5 mg PO QHS 07/10/13 [History Confirmed 03/14/14] Pregabalin [Lyrica] 150 mg PO BID 07/10/13 [History Confirmed 03/14/14] traZODone [Desyrel] 100 mg PO QHS 07/10/13 [History Confirmed 03/14/14] [facility] Medical History A-fib (Acute) Asthma (Acute) Surgical History H/O: hysterectomy (Acute) h/o thyroid removal (Acute) Social History Smoking Status: Former smoker pack-years: 2 HPI LEFT SHOULDER: Details: LAUREEN MORELOS is a 72 year old F here today for left shoulder pain. She states that she has had left shoulder pain for a few years. She denies any known injury. Patient has pain over her lateral shoulder and into her elbow. She has increased pain with laying on her shoulder. Patient has limited range of motion. She has shoulder weakness. Patient states that she has had injections by Dr Johnson into her shoulder. Her last injection was in February which was helpful for a few weeks. Patient denies any formal physical therapy. She denies any xrays or MRI of her shoulder. Denies numbness, tingling or other associated symptoms. She takes hydrocodone for pain. patient states last injection within 1-2 months, pain is 8/10. affecting adls, cant roll onto shoulder bc of pain. ROS Const Reports system reviewed and no additional complaints, except as docu Eyes Reports system reviewed and no additional complaints, except as docu ENT Reports system reviewed and no additional complaints, except as docu Card Reports system reviewed and no additional complaints, except as docu Resp Reports system reviewed and no additional complaints, except as docu GI Reports system reviewed and no additional complaints, except as docu Reports system reviewed and no additional complaints, except as docu Musc Reports joint pain, Reports muscle weakness, Reports limited joint movement Skin/Breast Reports system reviewed and no additional complaints, except as docu Neuro Yes system reviewed and no additional complaints, except as docu Psych Reports system reviewed and no additional complaints, except as docu Endo Reports system reviewed and no additional complaints, except as docu Ortho Exam Left Shoulder Testing: Yes TTP Biceps, Yes AROM-Forward Elevation 0-180 (75), Yes AROM-External Rotation at side 0-60, Yes Neer's, Yes Speed's, Yes Hawkin's Internal Rotation: Buttock SHOULDER: 80 flexion/abduction Assessment AND Plan Problems 1. Osteoarthritis of left glenohumeral joint M19.012 Plan Obtained X-rays of patient'sleft shoulder. Personally reviewed x-rays. There is no obvious fracture, dislocation, or lucency noted. severe gh oa left shoulder. stiffness, just received injection with minimal relief here for other options. discussed treatment options- nothing, injection, PT or a new shoulder- would need MRI/CT for evaluation of surgical options and discussion with dr stock. at this point, not interested in a new shoulder bc a month ago. discussed aquatic therapy and gave a prescription today. return if she wants to try an injection here. Follow up as needed or sooner if pain, swelling, numbness or associated symptoms, or concerns develop. All questions answered. Patient in agreement of plan. Orders Orders: Coding Level of Care Code Off vis,new,level 3 Diagnoses Osteoarthritis of left glenohumeral joint M19.012 05/04/18 1615 <Electronically signed by Kym Live DO> Date Kym Live DO Cosigner Signature: Date (if applicable) CC: Klever Johnson MD SHOULDER MIN 2 VIEWS Observed: 05/04/2018 Status: F Source: [place] 2:49 PM [facility] REPOSITORY [facility] Imaging Services [address] [place] [id number] Shoulder min 2 Views MR#: [id number] Acct: [id number] Name: ELIZABETHLAUREEN Mir Rep #: [id number] : 1945 F 72 From: Cholo Pascual MD PCP: Raisa Fleming DO Status: REG CLI Study: Shoulder min 2 Views Date of Exam: 05/04/18 Exam# [id number] Ordering Dr: Kym Live DO STUDY: X-RAY - LEFT SHOULDER REASON FOR EXAM: Pain. TECHNIQUE: 3 view(s) of the shoulder. COMPARISON: None. FINDINGS: There are marginal osteophytes, joint space narrowing and subchondral cystic change/sclerosis of the humeral head. There is mild acromioclavicular arthrosis. Normal acromion. There is narrowing of acromiohumeral distance suggestive of rotator cuff pathology. Normal visualized pulmonary apex. RAD/Shoulder min 2 Views IMPRESSION: Glenohumeral arthrosis. Mild acromioclavicular arthrosis. Narrowing of acromiohumeral distance suggestive of rotator cuff pathology. Electronically Signed: Cholo Pascual MD at 14:50 EST Tel , Service support , CC: Kym Live DO; Raisa Fleming DO Aemt: Signed FINAL SURGICAL Observed: 03/08/2018 Status: F Source: [facility] PATHOLOGY REPORT 1:21 PM [facility] REPOSITORY . Pathology Reports Accession: Collected Date/Time: Received Date/Time: Pathologist: [id number] 03/08/2018 13:21 EDT 03/08/2018 13:21 EDT DO SIMON NDIAYE Final Surgical Pathology Report DIAGNOSIS: THYROID, RIGHT LOBE -- ADENOMATOUS GOITER WITH DEGENERATIVE CHANGES AND CALCIFICATION. NEGATIVE FOR MALIGNANCY. CLINICAL INFORMATION: Procedure: RIGHT THYROID LOBECTOMY POSSIBLE TOTAL THYROIDECTOMY Preoperative diagnosis: NONTOXIC MULTINODULAR GOITER Postoperative diagnosis: SAME SPECIMEN: A THYROID- RIGHT INTRAOPERATIVE CONSULTATION: FS: ADENOMATOUS GOITER. NO MALIGNANCY ON FROZEN SECTION. dictated by Richard Ndiaye D.O. GROSS DESCRIPTION: Received fresh for intraoperative consultation labeled right thyroid is a 12 g, 5 x 3 x 2.4 cm product of a right thyroid lobectomy. The outer surface is red and ranges from smooth to rough. The specimen is inked and sectioned to show a few johnson-red nodules measuring up to 2.2 cm in greatest dimension. The largest nodule displays some johnson-yellow stippling. A customer sales representative section of the largest nodule is submitted for frozen section diagnosis. The remaining parenchyma is dark red and shows usual fine architecture. RS -7 Dictated by Tammy SPEAR ([facility]) MICROSCOPIC DESCRIPTION: Slides reviewed. Electronically Signed by Pathology Report verified by [facility] Electronically signed by SIMON NDIAYE DO Sign out Date: 03/09/2018 14:36 Performing Lab: [facility], [address] [place] [address] Performed By: #### SPFR #### [place] [address] CBC Collected: 03/08/2018 Status: F Source: [facility] 10:19 AM [facility] REPOSITORY TYPE CODE TESTS RESULT OUT OF REFERENCE UNITS RANGE LAB WBC(LOINC) 4.50-10.80 10 3/mcL WBC 6.10 LAB RBCCT(LOINC 4.10-5.30 10 6/mcL ) High RBC 5.33 LAB HGB(LOINC) 12.0-16.0 G/dL Hgb 14.3 LAB HCT(LOINC) 34.0-46.0 % Hct 43.5 LAB MCV(LOINC) 80.0-99.0 fL MCV 81.6 LAB MCH(LOINC) 27.0-33.0 pg Low MCH 26.8 LAB MCHC(LOINC) 32.0-36.0 G/dL MCHC 32.8 LAB RDW(LOINC) 11.5-15.5 % High RDW 15.8 LAB PLT(LOINC) 150-450 10 3/mcL Platelet 155 LAB MPV(LOINC) 6.6-10.5 fL MPV 9.5 Performed By: #### CBC, ADIFF, ANEU, FIB, APTT, PRO #### [address] [address] .AUTO DIFF Collected: 03/08/2018 Status: F Source: [facility] 10:19 AM [facility] REPOSITORY TYPE CODE TESTS RESULT OUT OF REFERENCE UNITS RANGE LAB KRISTIN(LOINC) 50.0-75.0 % Neutrophil % 63.3 LAB LYM(LOINC) 20.0-40.0 % Lymphocyte % 23.8 LAB MON(LOINC) 2.0-13.0 % Monocyte % 10.3 LAB EO(LOINC) 0.0-6.0 % Eosinophil % 1.9 LAB BAS(LOINC) 0.0-2.5 % Basophil % 0.7 LAB ABLYM(LOIN 0.90-4.32 10 3/mcL C) Lymphocyte, 1.50 Absolute LAB BENNY(LOINC 0.09-1.40 10 3/mcL ) Monocyte, 0.60 Absolute LAB AEOS(LOINC 0.00-0.65 10 3/mcL ) Eosinophil, 0.10 Absolute LAB ABAS(LOINC 0.00-0.27 10 3/mcL ) Basophil, 0.00 Absolute Performed By: #### CBC, ADIFF, ANEU, FIB, APTT, PRO #### [address] [address] .NEUABS Collected: 03/08/2018 Status: F Source: [facility] 10:19 AM [facility] REPOSITORY TYPE CODE TESTS RESULT OUT OF REFERENCE UNITS RANGE LAB ANEU(LOINC) 2.25-8.10 10 3/mcL Neutrophil, 3.90 Absolute Performed By: #### CBC, ADIFF, ANEU, FIB, APTT, PRO #### [facility] [address] [place] [address] FIB Collected: 03/08/2018 Status: F Source: [facility] 10:19 AM [facility] REPOSITORY TYPE CODE TESTS RESULT OUT OF REFERENCE UNITS RANGE LAB FIB(LOINC) 250-550 mg/dL High Fibrinogen 683 Performed By: #### CBC, ADIFF, ANEU, FIB, APTT, PRO #### [place] [id number] [place] [address] APTT Collected: 03/08/2018 Status: F Source: [facility] 10:19 AM [facility] REPOSITORY TYPE CODE TESTS RESULT OUT OF REFERENCE UNITS RANGE LAB PDOSE(LOIN C) Heparin dose Unknown (APTT) LAB APTT0(LOIN 25.0-35.0 seconds C) High APTT 43.2 Result Comment: For Heparin anticoagulation therapy, the recommended therapeutic range is: 54-77 seconds (APTT Correlation with Anti-Xa therapeutic range of 0.3-0.7 units/ml). PLEASE REFERENCE THE PHARMACY PROTOCOL FOR DOSING. Performed By: #### CBC, ADIFF, ANEU, FIB, APTT, PRO #### [place] [id number] [place] [address] PRO Collected: 03/08/2018 Status: F Source: [facility] 10:19 AM [facility] REPOSITORY TYPE CODE TESTS RESULT OUT OF REFERENCE UNITS RANGE LAB PT(LOINC) 9.0-14.6 seconds Protime 11.9 Result Comment: Effective 11/30/07, Protime results may be affected by some antibiotics (i.e. Ciprofloxacin, Azithromycin, Bactrim) which may potentiate the action of oral anticoagulants, with further increases in Protime/INR. LAB INR(LOINC) ratio PT International Ratio 1.0 Result Comment: The [employer] (CHEST, 1992, 102:312S-25S) recommended therapeutic range for oral anticoagulant therapy is: LOW RISK: Prophylaxis of venous thrombosis INR: 2.0-3.0 Treatment of pulmonary embolism 2.0-3.0 Prevention of systemic embolism 2.0-3.0 HIGH RISK: Mechanical prosthetic valves 2.5-3.5 Performed By: #### CBC, ADIFF, ANEU, FIB, APTT, PRO #### [address] [address] HGB Collected: 03/08/2018 Status: F Source: [facility] 10:19 AM [facility] REPOSITORY TYPE CODE TESTS RESULT OUT OF RANGE REFERENCE UNITS LAB HGB(LOINC) 12.0-16.0 G/dL Hgb 14.3 Performed By: #### HGB, BMP, GFR #### [place] [address] BMP Collected: 03/08/2018 Status: F Source: [facility] 10:19 AM [facility] REPOSITORY TYPE CODE TESTS RESULT OUT OF REFERENCE UNITS RANGE LAB GLU(LOINC) 82-115 mg/dL Glucose Level 95 LAB NA(LOINC) 136-145 mEq/L Sodium Level 141 LAB K(LOINC) 3.5-5.0 mEq/L Potassium Level 3.9 LAB CL(LOINC) 98-110 mEq/L Chloride 104 LAB CO2(LOINC) 22-32 mEq/L CO2 29 LAB EBAL(LOINC 4.0-15.0 mEq/L ) Electrolyte Balance 8.0 LAB BUN(LOINC) 8.0-22.0 mg/dL BUN 22.0 LAB CRE(LOINC) 0.50-1.20 mg/dL Creatinine Lvl (s) 0.73 LAB BC(LOINC) 10.0-22.0 ratio High BUN/Creatinine 30.1 Ratio LAB CA(LOINC) 8.4-10.1 mg/dL Calcium Lvl 8.4 Performed By: #### HGB, BMP, GFR #### [address] [address] .GFR Collected: 03/08/2018 Status: F Source: [facility] 10:19 AM [facility] REPOSITORY TYPE CODE TESTS RESULT OUT OF REFERENCE UNITS RANGE LAB GFRAA(LOINC ml/min/1.73 ) sqm GFR >60 Armenian Result Comment: GFR Population mean for , Non- Americans Ages 20-29 = 116 mL/min/1.73 sq.m. Ages 30-39 = 107 mL/min/1.73 sq.m. Ages 40-49 = 99 mL/min/1.73 sq.m. Ages 50-59 = 93 mL/min/1.73 sq.m. Ages 60-69 = 85 mL/min/1.73 sq.m. Ages 70+ = 75 mL/min/1.73 sq.m. Chronic Kidney Disease: Less than 60 mL/min/1.73 square meters End Stage Renal Disease: Less than 15 mL/min/1.73 square meters LAB GFRNO(LOINC) ml/min/1.73sqm GFR Non- >60 Result Comment: GFR Population mean for , Non- Americans Ages 20-29 = 116 mL/min/1.73 sq.m. Ages 30-39 = 107 mL/min/1.73 sq.m. Ages 40-49 = 99 mL/min/1.73 sq.m. Ages 50-59 = 93 mL/min/1.73 sq.m. Ages 60-69 = 85 mL/min/1.73 sq.m. Ages 70+ = 75 mL/min/1.73 sq.m. Chronic Kidney Disease: Less than 60 mL/min/1.73 square meters End Stage Renal Disease: Less than 15 mL/min/1.73 square meters Performed By: #### HGB, BMP, GFR #### [address] [address] PROGRESS Observed: 03/03/2018 Status: COMPLETED Source: [place] 11:10 AM [facility] REPOSITORY [facility] ID: [id number] Author: Ivon Strong Service: (none) Author Type: Physician Type: Progress Notes Filed: 03/03/2018 11:41 AM Note Text: Follow up podiatric office visit for: Chief Complaint: This 72 year old who presents for follow up:b/l midfoot/possible charcot arthropathy Patient has been wearing b/l surgical shoes. We have discussed casting vs boot but she was unable to do so because of b/l involvement and also her was recently hospitalized for chf. Patient has been wearing b/l surgical shoes She states that she has been using wheel chair when she is out of the house but in the house, she has been full ambulatory. She did get fitted for b/l afo yesterday She has new xrays to review. Patient states the pain is getting better Of note, patient did have xrays of b/l feet in 2016 that she did bring in Patient denies hx of diabetes Patient does complain of painful toenails of b/l feet PAIN EVALUATION 03/03/2018 Pain Score: 3 Pain Location: Other: See Comment bilateral ankle Description: Dull Duration Amount of Time: 2 Duration Units: Months Frequency: Intermittent Intervention: Reposition;Relaxation No results found for: HBA1C PCP: No primary care provider on file. PAST MEDICAL HISTORY Diagnosis Date - A-fib (HCC) - Fibromyalgia - HTN (hypertension) - RLS (restless legs syndrome) - Vitamin D deficiency Current Outpatient Prescriptions: VITAMIN D 50,000 unit capsule Take 1 capsule by mouth once each week. HYDROcodone-Acetaminophen (NORCO) 7.5-325 mg per tablet Take 1 tablet by mouth three times daily. LYRICA 150 mg capsule Take 1 capsule by mouth twice daily. tiZANidine (ZANAFLEX) 4 mg tablet Take 1 tablet by mouth once daily. tolterodine ER (DETROL LA) 4 mg 24 hr capsule Take 1 capsule by mouth once daily. traZODone (DESYREL) 100 mg tablet Take 1 tablet by mouth daily at bedtime. LISINOPRIL ORAL Take 10 mg by mouth once daily. Once daily levothyroxine sodium (SYNTHROID ORAL) Take 50 mcg by mouth. METOPROLOL TARTRATE ORAL Take 50 mg by mouth twice daily. rivaroxaban (XARELTO) 20 mg tablet Take 20 mg by mouth daily with dinner. budesonide-formoterol (SYMBICORT) 160-4.5 mcg/actuation inhaler Inhale 2 Puffs as instructed twice daily. ramelteon (ROZEREM) 8 mg tablet Take 8 mg by mouth daily at bedtime. pramipexole (MIRAPEX) 1 mg tablet Take 1 mg by mouth three times daily. Dexlansoprazole (DEXILANT) 60 mg CpDM Take by mouth. alendronate (FOSAMAX) 70 mg tablet Take 70 mg by mouth once each week. escitalopram oxalate (LEXAPRO) 10 mg tablet Take 10 mg by mouth once daily. No current facility-administered medications for this visit. ALLERGIES Allergen Reactions - Duragesic [Fentanyl] Other: See Comments PAST SURGICAL HISTORY Procedure Laterality Date - APPENDECTOMY - CHOLECYSTECTOMY 1995 - PAST SURGICAL HISTORY OF 3 back surgeries -1999 - PAST SURGICAL HISTORY OF spinal cord stimulator - TOTAL KNEE REPLACEMENT REVIEW OF SYSTEMS: CONSTITUTIONAL: No fevers, chills, nightsweats, unintended weight loss HEENT: Denies frequent or severe heaches, nasal congestion/sinus symptoms, problematic allergy problems. EYES: No diplopia or blurry vision. CARDIOVASCULAR: No chest pain, dyspnea, palpitations, orthopnea, PND, ankle edema. PULM: No dyspnea, unexplained cough. GI: No dysphagia/odynophagia, problematic reflux, constipation, diarrhea, changes in stool habits, hematochezia, melena. : No new urinary complaints, including dysuria, gross hematuria or pyuria. NEURO: No new balance problems, peripheral weakness/paresthesias or numbness of concern. MUSC-SKEL: Arthritis of b/l midfoot PSY: No concerns regarding depression, anxiety or panic. INTEGUMENTARY: No new skin changes (rash, new or changing mole, new growth) Physical Exam: Constitutional: Pt is a well developed 72 year old female who is alert, oriented, cooperative and in no apparent distress. OBJECTIVE: NVSI unchanged from previous visit. Dermatological: Nails 1-5 b/l are thick, discolored, painful. Webspaces clean and dry 1-4 b/l. Skin appears well hydrated and supple. good color, texture, turgor. No open lesions present. No callosities present. Musculoskeletal/Orthopaedic: Patient has no pain to palpation of b/l feet There is flatfoot deformity b/l with midfoot spurring b/l There is minimal swelling of b/l foot. There is no increased warmth of b/l foot xrays of b/l foot reviewed today and compared to xrays on February 17. xrays were reviewed from 2016 that patient presented to clinic with. There appears to be midfoot arthritis with no change from 2016 ASSESSMENT: (M14.672) Charcot's joint of left ankle (primary encounter diagnosis) (M14.671) Charcot ankle, right (B35.1) Onychomycosis (M79.675) Pain in toe of left foot (M79.674) Pain in toe of right foot PLAN: 1. History and physical examination completed today. 2. Discussed midfoot arthritis b/l. This could be component of charcot vs midfoot arthritis. Reviewed xrays from today, February 17 and 2015. There appears to be no change from 2016. Suspect more arthritic than acute charcot. She has been using surgical shoe and her pain has subsided. I discussed casting but she declined. I discussed surgical options but she states this is not an option. She understands this deformity could progress and result in further destruction in the event this is charcot. Being that xrays show no major change from 2016, she has elected to pursue continued conservative care. Continue with surgical shoe and await afo. Repeat xrays in 1 month 3. Toenails 1-5 b/l debrided in length and thickness Ivon Strong DPM PROGRESS Observed: 03/03/2018 Status: COMPLETED Source: [place] 11:03 AM [facility] REPOSITORY [facility] ID: [id number] Author: Jsoee Rivers RN Service: (none) Author Type: (none) Type: Progress Notes Filed: 03/03/2018 11:41 AM Note Text: AMB ROOMING INTAKE FLOWSHEET DATA Risk Screening Do you have concerns about personal safety or safety in the home?: No Pain Pain Score: 3/10 Pain Location: Other: See Comment (bilateral ankle) Description: Dull Duration Amount of Time: 2 Duration Units: Months Frequency: Intermittent Intervention: Reposition, Relaxation Patient presents for f/u on charcot of B/L feet. She c/o mild pain when she is on her feet. Pt presents to clinic in wheelchair but states at home she is full WB in bilateral post op shoes. She states she has a wheelchair ordered by [employer] and she is waiting for it to come in. She also reports that she had an appointment at [facility] yesterday and had molds taken for braces. Continues to take Vitamin D. She has a new XR to review. PROGRESS Observed: 03/03/2018 Status: COMPLETED Source: [place] 10:51 AM [facility] REPOSITORY [facility] ID: [id number] Author: Estella Fajardo (Rt) Service: (none) Author Type: Watch Case Polisher Type: Progress Notes Filed: 03/03/2018 10:51 AM Note Text: Radiology Service Progress Note PATIENT NAME: Laureen Morelos DATE OF SERVICE: March 03, 2018 TIME: 10:51 AM PATIENT IDENTITY VERIFICATION COMPLETED USING TWO (2) METHODS: Patient confirmed name verbally and Date of . PATIENT GENDER DATA: Female. status: : No status: NO. PATIENT RELEVANT IMPLANT DATA REVIEWED: Not Applicable RADIOLOGY DEPARTMENT: General X-ray: Exam(s) Completed: Lower Extremity X-Ray(s): Feet, Bilateral and Wt. Bearing: PERIPHERAL IV DATA: Not applicable SIGNED BY: RT Scotty March 03, 2018 10:51 AM XR FOOT 3V AP/LAT/OBL Observed: 03/03/2018 Status: F Source: [facility] 10:50 AM [facility] REPOSITORY * * *Final Report* * * DATE OF EXAM: Mar 03 2018 10:50AM WRX [id number] - XR FOOT 3V AP/LAT/OBL JAJA / PROCEDURE REASON: multiple diagnoses * * * * Physician Interpretation * * * * BILATERAL FOOT TECHNIQUE: AP view of both feet; lateral and oblique views of each foot: 5 images HISTORY: Charcot joints COMPARISON: 02/17/2018 RESULT: Right: Severe pes planus deformity is present. There is severe subluxation at the naviculocuneiform articulations. There is lateral subluxation at the second tarsometatarsal articulation. The naviculocuneiform articulations and all of the tarsometatarsal articulations demonstrate moderate osteoarthrosis with joint space narrowing and articular surface irregularity and osteophytes. There is also mild to moderate narrowing at the talonavicular joint and mild narrowing at the calcaneocuboid joint overall with severe narrowing along the lateral aspect of the joint. The MTP and the IP joints are unremarkable. Left: Severe pes planus deformity is present. There is mild subluxation at the naviculocuneiform articulations. There is severe glenohumeral O-medial cuneiform joint space narrowing with articular surface erosive, irregularity and osteophyte formation. There is moderate narrowing in all of the tarsometatarsal articulation with articular surface irregularity and osteophyte formation. Mild joint space narrowing is present at the first MTP joint accompanied by osteophyte formation. The remaining MTP and the IP joints are unremarkable. IMPRESSION: CHARCOT CHANGES BILATERALLY, RIGHT GREATER THAN LEFT. NO SIGNIFICANT INTERVAL CHANGE. Aemt: DANIELA Transcribe Date/Time: Mar 03 2018 11:39A Dictated by : CARROLL MATTHEWS MD This examination was interpreted and the report reviewed and electronically signed by: CARROLL MATTHEWS MD on Mar 03 2018 11:43AM EST [id number] CNOV Observed: 03/03/2018 Status: COMPLETED Source: [place] 10:25 AM [facility] REPOSITORY Office Visit (PODIWS) LAUREEN MORELOS ([id number]) 1945 F Date Time Provider Department 03/03/18 10:25 AM IV[facility] STRONG PODIWS During your visit today, we recorded the following information about you: Josee Rivers RN 03/03/2018 11:41 AM Signed AMB ROOMING INTAKE FLOWSHEET DATA Risk Screening Do you have concerns about personal safety or safety in the home?: No Pain Pain Score: 3/10 Pain Location: Other: See Comment (bilateral ankle) Description: Dull Duration Amount of Time: 2 Duration Units: Months Frequency: Intermittent Intervention: Reposition, Relaxation Patient presents for f/u on charcot of B/L feet. She c/o mild pain when she is on her feet. Pt presents to clinic in wheelchair but states at home she is full WB in bilateral post op shoes. She states she has a wheelchair ordered by [employer] and she is waiting for it to come in. She also reports that she had an appointment at [facility] yesterday and had molds taken for braces. Continues to take Vitamin D. She has a new XR to review. Ivon Strong DPM 03/03/2018 11:41 AM Signed Follow up podiatric office visit for: Chief Complaint: This 72 year old who presents for follow up:b/l midfoot/possible charcot arthropathy Patient has been wearing b/l surgical shoes. We have discussed casting vs boot but she was unable to do so because of b/l involvement and also her was recently hospitalized for chf. Patient has been wearing b/l surgical shoes She states that she has been using wheel chair when she is out of the house but in the house, she has been full ambulatory. She did get fitted for b/l afo yesterday She has new xrays to review. Patient states the pain is getting better Of note, patient did have xrays of b/l feet in 2016 that she did bring in Patient denies hx of diabetes Patient does complain of painful toenails of b/l feet PAIN EVALUATION 03/03/2018 Pain Score: 3 Pain Location: Other: See Comment bilateral ankle Description: Dull Duration Amount of Time: 2 Duration Units: Months Frequency: Intermittent Intervention: Reposition;Relaxation No results found for: HBA1C PCP: No primary care provider on file. PAST MEDICAL HISTORY Diagnosis Date - A-fib (HCC) - Fibromyalgia - HTN (hypertension) - RLS (restless legs syndrome) - Vitamin D deficiency Current Outpatient Prescriptions: VITAMIN D 50,000 unit capsule Take 1 capsule by mouth once each week. HYDROcodone-Acetaminophen (NORCO) 7.5-325 mg per tablet Take 1 tablet by mouth three times daily. LYRICA 150 mg capsule Take 1 capsule by mouth twice daily. tiZANidine (ZANAFLEX) 4 mg tablet Take 1 tablet by mouth once daily. tolterodine ER (DETROL LA) 4 mg 24 hr capsule Take 1 capsule by mouth once daily. traZODone (DESYREL) 100 mg tablet Take 1 tablet by mouth daily at bedtime. LISINOPRIL ORAL Take 10 mg by mouth once daily. Once daily levothyroxine sodium (SYNTHROID ORAL) Take 50 mcg by mouth. METOPROLOL TARTRATE ORAL Take 50 mg by mouth twice daily. rivaroxaban (XARELTO) 20 mg tablet Take 20 mg by mouth daily with dinner. budesonide-formoterol (SYMBICORT) 160-4.5 mcg/actuation inhaler Inhale 2 Puffs as instructed twice daily. ramelteon (ROZEREM) 8 mg tablet Take 8 mg by mouth daily at bedtime. pramipexole (MIRAPEX) 1 mg tablet Take 1 mg by mouth three times daily. Dexlansoprazole (DEXILANT) 60 mg CpDM Take by mouth. alendronate (FOSAMAX) 70 mg tablet Take 70 mg by mouth once each week. escitalopram oxalate (LEXAPRO) 10 mg tablet Take 10 mg by mouth once daily. No current facility-administered medications for this visit. ALLERGIES Allergen Reactions - Duragesic [Fentanyl] Other: See Comments PAST SURGICAL HISTORY Procedure Laterality Date - APPENDECTOMY - CHOLECYSTECTOMY 1995 - PAST SURGICAL HISTORY OF 3 back surgeries -1999 - PAST SURGICAL HISTORY OF spinal cord stimulator - TOTAL KNEE REPLACEMENT REVIEW OF SYSTEMS: CONSTITUTIONAL: No fevers, chills, nightsweats, unintended weight loss HEENT: Denies frequent or severe heaches, nasal congestion/sinus symptoms, problematic allergy problems. EYES: No diplopia or blurry vision. CARDIOVASCULAR: No chest pain, dyspnea, palpitations, orthopnea, PND, ankle edema. PULM: No dyspnea, unexplained cough. GI: No dysphagia/odynophagia, problematic reflux, constipation, diarrhea, changes in stool habits, hematochezia, melena. : No new urinary complaints, including dysuria, gross hematuria or pyuria. NEURO: No new balance problems, peripheral weakness/paresthesias or numbness of concern. MUSC-SKEL: Arthritis of b/l midfoot PSY: No concerns regarding depression, anxiety or panic. INTEGUMENTARY: No new skin changes (rash, new or changing mole, new growth) Physical Exam: Constitutional: Pt is a well developed 72 year old female who is alert, oriented, cooperative and in no apparent distress. OBJECTIVE: NVSI unchanged from previous visit. Dermatological: Nails 1-5 b/l are thick, discolored, painful. Webspaces clean and dry 1-4 b/l. Skin appears well hydrated and supple. good color, texture, turgor. No open lesions present. No callosities present. Musculoskeletal/Orthopaedic: Patient has no pain to palpation of b/l feet There is flatfoot deformity b/l with midfoot spurring b/l There is minimal swelling of b/l foot. There is no increased warmth of b/l foot xrays of b/l foot reviewed today and compared to xrays on February 17. xrays were reviewed from 2016 that patient presented to clinic with. There appears to be midfoot arthritis with no change from 2016 ASSESSMENT: (M14.672) Charcot's joint of left ankle (primary encounter diagnosis) (M14.671) Charcot ankle, right (B35.1) Onychomycosis (M79.675) Pain in toe of left foot (M79.674) Pain in toe of right foot PLAN: 1. History and physical examination completed today. 2. Discussed midfoot arthritis b/l. This could be component of charcot vs midfoot arthritis. Reviewed xrays from today, February 17 and 2015. There appears to be no change from 2016. Suspect more arthritic than acute charcot. She has been using surgical shoe and her pain has subsided. I discussed casting but she declined. I discussed surgical options but she states this is not an option. She understands this deformity could progress and result in further destruction in the event this is charcot. Being that xrays show no major change from 2016, she has elected to pursue continued conservative care. Continue with surgical shoe and await afo. Repeat xrays in 1 month 3. Toenails 1-5 b/l debrided in length and thickness Ivon Strong DPM Referring Provider: IVON STRONG [[id number]] Allergies As of Date: 03/03/2018 Noted Allergy Reaction DURAGESIC (FENTANYL) 02/17/2018 14 - Other: See Comments Date Reviewed: 03/03/2018 Reviewed by: Josee Rivers RN - Fully Assessed Reason for Visit: Follow Up [171] Primary Visit Diagnosis:Charcot's joint of left ankle [M14.672] Other Visit Diagnoses:Charcot ankle, right [M14.671] Onychomycosis [B35.1] Pain in toe of left foot [M79.675] Pain in toe of right foot [M79.674] Prescriptions as of 03/03/2018 Sig: VITAMIN D2 50,000 UNIT CAPSULE Take 1 capsule by mouth once * HYDROCODONE 7.5 MG-ACETAMINOP* Take 1 tablet by mouth three * LYRICA 150 MG CAPSULE Take 1 capsule by mouth twice* TIZANIDINE 4 MG TABLET Take 1 tablet by mouth once d* TOLTERODINE ER 4 MG CAPSULE,E* Take 1 capsule by mouth once * TRAZODONE 100 MG TABLET Take 1 tablet by mouth daily * LISINOPRIL ORAL Take 10 mg by mouth once uri* SYNTHROID ORAL Take 50 mcg by mouth. METOPROLOL TARTRATE ORAL Take 50 mg by mouth twice wilver* RIVAROXABAN 20 MG TABLET Take 20 mg by mouth daily wit* BUDESONIDE-FORMOTEROL HFA 160* Inhale 2 Puffs as instructed * RAMELTEON 8 MG TABLET Take 8 mg by mouth daily at b* PRAMIPEXOLE 1 MG TABLET Take 1 mg by mouth three time* DEXLANSOPRAZOLE 60 MG CAPSULE* Take by mouth. ALENDRONATE 70 MG TABLET Take 70 mg by mouth once each* ESCITALOPRAM 10 MG TABLET Take 10 mg by mouth once uri* Problem List As Of Date: 03/03/2018 (None) Disposition: Return in about 1 month (around 04/03/2018) for bilateral charcot. Follow-up and Disposition History Recorded Encounter Status:Closed by IVON STRONG DPM on 03/03/18 VITAMIN D 25 HYDROXY Collected: 02/17/2018 Status: F Source: [place] 4:03 PM [facility] REPOSITORY TYPE CODE TESTS RESULT OUT OF REFERENCE UNITS RANGE LAB VITD 31.0-80.0 ng/mL Vitamin D 25 42.6 Hydroxy Result Comment: Classification of 25 [place] Vitamin D status: Insufficiency/Moderate Deficiency: < or = 30 ng/mL Sufficiency/Optimal Levels: 31 to 80 ng/mL Toxicity: > 100 ng/mL Test performed by chemiluminescent immunoassay. Performed By: #### VITD #### [facility] [address] [place], [place] [address] PROGRESS Observed: 02/17/2018 Status: COMPLETED Source: [place] 3:06 PM [facility] REPOSITORY HNO ID: [id number] Author: Ivon Strong Service: (none) Author Type: Physician Type: Progress Notes Filed: 02/18/2018 7:38 AM Note Text: Initial Podiatric Office Visit: Chief Complaint: This 72 year old female who presents with chief complaint:b/l foot pain HPI Patient presents to clinic for evaluation of b/l foot. She states the feet have been hurting her for the past one month. Patient denies any recent injury. Prior to the onset of pain, patient feet were not bothering her. Patient went to [facility] and she was informed that she had charcot. Patient was given antibiotic but apparently at the same time she was having charcot, she was having uti. Patient does not recall what was done for foot. Patient currently has pain specialist for back and shoulder pain. Because her feet were getting more painful, she has had her vicodin increased to tid. She is not being managed by anyone for the charcot foot deformity. Patient denies being diabetic. PAIN EVALUATION 02/17/2018 Pain Score: 8 Pain Location: Foot-Left Description: Sore Duration Amount of Time: 3 Duration Units: Weeks Frequency: Intermittent Intervention: Medication No results found for: HBA1C PCP: No primary care provider on file. PAST MEDICAL HISTORY Diagnosis Date - A-fib (HCC) - Fibromyalgia - HTN (hypertension) - RLS (restless legs syndrome) - Vitamin D deficiency Current Outpatient Prescriptions: LISINOPRIL ORAL Take by mouth. Once daily levothyroxine sodium (SYNTHROID ORAL) Take by mouth. METOPROLOL TARTRATE ORAL Take by mouth. VITAMIN D 50,000 unit capsule Take 1 capsule by mouth once each week. HYDROcodone-Acetaminophen (NORCO) 7.5-325 mg per tablet Take 1 tablet by mouth three times daily. LYRICA 150 mg capsule Take 1 capsule by mouth twice daily. tiZANidine (ZANAFLEX) 4 mg tablet Take 1 tablet by mouth once daily. tolterodine ER (DETROL LA) 4 mg 24 hr capsule Take 1 capsule by mouth once daily. traZODone (DESYREL) 100 mg tablet Take 1 tablet by mouth daily at bedtime. No current facility-administered medications for this visit. ALLERGIES Allergies not on file PAST SURGICAL HISTORY Procedure Laterality Date - CHOLECYSTECTOMY 1995 - PAST SURGICAL HISTORY OF 3 back surgeries -1999 - PAST SURGICAL HISTORY OF spinal cord stimulator No family history on file. Social History Marital status: Spouse name: Years of education: Number of children: Social History Main Topics Smoking status: Former Smoker Packs/day: 0.00 Years: 0.00 Quit date: 1969 Smokeless tobacco: Never Used Alcohol use: No Drug use: No REVIEW OF SYSTEMS GENERAL: Negative for Malaise, significant weight loss, fever RESPIRATORY: Negative for cough, wheezing and shortness of breath CARDIOVASCULAR: Negative for chest pain, leg swelling and palpitations GI: Negative for abdominal discomfort, blood in stools or black stools and change in bowel habits : Negative for dysuria, frequency and incontinence MUSCULOSKELETAL: Negative for joint pain or swelling, back pain, and muscle pain. SKIN: Negative for lesions, rash, and itching. HEMATOLOGY/LYMPHOLOGY Negative for prolonged bleeding, bruising easily, and swollen nodes. ENDOCRINE: Negative for cold or heat intolerance, polyuria, polydipsia and goiter. NEURO: negative Physical Exam: Constitutional: Pt is a well developed 72 year old female who is alert, oriented and cooperative Eyes: Following during examination. No redness or drainage. Respiratory: RR normal and nonlabored. Even breathing. No evidence of distress or shortness of breath. Psychology: Patient is engaged during conversation. Normal affect and mood. Does not appear depressed or anxious during encounter. Vascular: Dorsalis pedis and posterior tibial pulses palpable as b/l Capillary Fill time < 5 seconds to digits 1-5 b/l Skin temperature warm to warm proximal to distal b/l Hair growth present to digits Neurological: Declining light touch/epicritic sensation Vibratory sensation absent b/l decreased protective sensation + significant neurological deficits Dermatological: Nails 1-5 b/l appear normal. Webspaces clean and dry 1-4 b/l. Skin appears well hydrated and supple. good color, texture, turgor. No open lesions present. No callosities present. Musculoskeletal/Orthopaedic: Patient has pain to palpation of b/l midfoot Foot type is pronated structurally AJ ROM is full with knee extended and flexed 1st MPJ is full when loaded and no pain or crepitus are noted with ROM. MTJ, STJ are full and free of pain and crepitus. +5/5 muscle strength dorsiflexion, plantarflexion, inversion, eversion b/l Radiographs: 3 views b/l foot ordered February 17, 2018: I have personally reviewed and interpreted these XR myself: There is moderate midfoot degenerative changes concerning for progressive charcot ASSESSMENT: (M14.672) Charcot's joint of left ankle (primary encounter diagnosis) (M14.671) Charcot ankle, right (E55.9) Vitamin D deficiency PLAN: 1. History and physical examination performed. 2. XR reviewed with patient and interpreted today 3. Discussed possible charcot of b/l foot. Discussed acute vs chronic changes. Patient does have xrays of feet taking less than one year ago so she claims. Recommend she get those xrays for me so that I can compare. If this is chronic condition, would recommend treating with b/l afo. If this is acute, this is difficult because she needs to remain off b/l feet. Will provider her with wheel chair at this time. Will provider her with surgical shoe but I really want her to remain in wheel chair at this time. I have instructed her to get her last xrays so that I can review. 4. Will check vitamin d 5. F/u in 2 weeks with new xrays NICKOLAS Thompson Observed: 02/17/2018 Status: COMPLETED Source: [place] 2:55 PM [facility] REPOSITORY Office Visit (PODIWS) LAUREEN MORELOS ([id number]) 1945 F Date Time Provider Department 02/17/18 2:55 PM IVON STRONG PODIWS During your visit today, we recorded the following information about you: Christian Win Ma 02/18/2018 7:38 AM Signed AMB ROOMING INTAKE FLOWSHEET DATA Risk Screening Do you have concerns about personal safety or safety in the home?: No Pain Pain Score: 8/10 Pain Location: Foot-Left Description: Sore Duration Amount of Time: 3 Duration Units: Weeks Frequency: Intermittent Intervention: Medication Pt denies injury. States that she had severe foot pain and was unable to walk/WB. Was seen at [facility] ED on 01/30/18. She does not remember specifically was was done. 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 Patient reports constant 6-8/10 that just hurts bilaterally. Pain worse with WB. She does take [place], prescribed by her pain management, Dr. Johnson. States that since medication increased to 7.5/325 mg TID, it helps with pain. Patient unable to provide complete medical/surgical hx and current meds at this time to rocio ROY. Patient agreeable to sign release form and fax to PCP, Dr. Fleming in [place]. Christian Strong DPM 02/18/2018 7:38 AM Signed Initial Podiatric Office Visit: Chief Complaint: This 72 year old female who presents with chief complaint:b/l foot pain HPI Patient presents to clinic for evaluation of b/l foot. She states the feet have been hurting her for the past one month. Patient denies any recent injury. Prior to the onset of pain, patient feet were not bothering her. Patient went to [facility] and she was informed that she had charcot. Patient was given antibiotic but apparently at the same time she was having charcot, she was having uti. Patient does not recall what was done for foot. Patient currently has pain specialist for back and shoulder pain. Because her feet were getting more painful, she has had her vicodin increased to tid. She is not being managed by anyone for the charcot foot deformity. Patient denies being diabetic. PAIN EVALUATION 02/17/2018 Pain Score: 8 Pain Location: Foot-Left Description: Sore Duration Amount of Time: 3 Duration Units: Weeks Frequency: Intermittent Intervention: Medication No results found for: HBA1C PCP: No primary care provider on file. PAST MEDICAL HISTORY Diagnosis Date - A-fib (HCC) - Fibromyalgia - HTN (hypertension) - RLS (restless legs syndrome) - Vitamin D deficiency Current Outpatient Prescriptions: LISINOPRIL ORAL Take by mouth. Once daily levothyroxine sodium (SYNTHROID ORAL) Take by mouth. METOPROLOL TARTRATE ORAL Take by mouth. VITAMIN D 50,000 unit capsule Take 1 capsule by mouth once each week. HYDROcodone-Acetaminophen (NORCO) 7.5-325 mg per tablet Take 1 tablet by mouth three times daily. LYRICA 150 mg capsule Take 1 capsule by mouth twice daily. tiZANidine (ZANAFLEX) 4 mg tablet Take 1 tablet by mouth once daily. tolterodine ER (DETROL LA) 4 mg 24 hr capsule Take 1 capsule by mouth once daily. traZODone (DESYREL) 100 mg tablet Take 1 tablet by mouth daily at bedtime. No current facility-administered medications for this visit. ALLERGIES Allergies not on file PAST SURGICAL HISTORY Procedure Laterality Date - CHOLECYSTECTOMY 1995 - PAST SURGICAL HISTORY OF 3 back surgeries -1999 - PAST SURGICAL HISTORY OF spinal cord stimulator No family history on file. Social History Marital status: Spouse name: Years of education: Number of children: Social History Main Topics Smoking status: Former Smoker Packs/day: 0.00 Years: 0.00 Quit date: 1969 Smokeless tobacco: Never Used Alcohol use: No Drug use: No REVIEW OF SYSTEMS GENERAL: Negative for Malaise, significant weight loss, fever RESPIRATORY: Negative for cough, wheezing and shortness of breath CARDIOVASCULAR: Negative for chest pain, leg swelling and palpitations GI: Negative for abdominal discomfort, blood in stools or black stools and change in bowel habits : Negative for dysuria, frequency and incontinence MUSCULOSKELETAL: Negative for joint pain or swelling, back pain, and muscle pain. SKIN: Negative for lesions, rash, and itching. HEMATOLOGY/LYMPHOLOGY Negative for prolonged bleeding, bruising easily, and swollen nodes. ENDOCRINE: Negative for cold or heat intolerance, polyuria, polydipsia and goiter. NEURO: negative Physical Exam: Constitutional: Pt is a well developed 72 year old female who is alert, oriented and cooperative Eyes: Following during examination. No redness or drainage. Respiratory: RR normal and nonlabored. Even breathing. No evidence of distress or shortness of breath. Psychology: Patient is engaged during conversation. Normal affect and mood. Does not appear depressed or anxious during encounter. Vascular: Dorsalis pedis and posterior tibial pulses palpable as b/l Capillary Fill time < 5 seconds to digits 1-5 b/l Skin temperature warm to warm proximal to distal b/l Hair growth present to digits Neurological: Declining light touch/epicritic sensation Vibratory sensation absent b/l decreased protective sensation + significant neurological deficits Dermatological: Nails 1-5 b/l appear normal. Webspaces clean and dry 1-4 b/l. Skin appears well hydrated and supple. good color, texture, turgor. No open lesions present. No callosities present. Musculoskeletal/Orthopaedic: Patient has pain to palpation of b/l midfoot Foot type is pronated structurally AJ ROM is full with knee extended and flexed 1st MPJ is full when loaded and no pain or crepitus are noted with ROM. MTJ, STJ are full and free of pain and crepitus. +5/5 muscle strength dorsiflexion, plantarflexion, inversion, eversion b/l Radiographs: 3 views b/l foot ordered February 17, 2018: I have personally reviewed and interpreted these XR myself: There is moderate midfoot degenerative changes concerning for progressive charcot ASSESSMENT: (M14.672) Charcot's joint of left ankle (primary encounter diagnosis) (M14.671) Charcot ankle, right (E55.9) Vitamin D deficiency PLAN: 1. History and physical examination performed. 2. XR reviewed with patient and interpreted today 3. Discussed possible charcot of b/l foot. Discussed acute vs chronic changes. Patient does have xrays of feet taking less than one year ago so she claims. Recommend she get those xrays for me so that I can compare. If this is chronic condition, would recommend treating with b/l afo. If this is acute, this is difficult because she needs to remain off b/l feet. Will provider her with wheel chair at this time. Will provider her with surgical shoe but I really want her to remain in wheel chair at this time. I have instructed her to get her last xrays so that I can review. 4. Will check vitamin d 5. F/u in 2 weeks with new xrays NICKOLAS Thompson Ma 02/17/2018 3:25 PM Signed [facility] [address] [facility] [place] [address] PH: [phone] [place] [address], [facility] [address] PH: [phone] [place] [address] [facility] [address] [facility] [address] PH: [phone] [place] [address] [facility] [address] PH: [phone] or [phone] [place] [address] [facility] [address] PH: [phone] [place] [address] [facility] [address] PH: [phone] Referring Provider: SELF [200] Allergies As of Date: 02/17/2018 Noted Allergy Reaction DURAGESIC (FENTANYL) 02/17/2018 14 - Other: See Comments Date Reviewed: 02/17/2018 Reviewed by: Christian Win Ma - Fully Assessed Primary Visit Diagnosis:Charcot's joint of left ankle [M14.672] Other Visit Diagnoses:Charcot ankle, right [M14.671] Vitamin D deficiency [E55.9] Order(s):CONSULT TO ORTHOTIC/PROSTHETIC [300258] Order #: [id number]: 1 HEAVY DUTY WHEELCHAIR [[id number]] Order #: [id number] VITAMIN D 25 HYDROXY [SQVITD] Order #: [id number] FUTURE XR FOOT GENERAL 3V AP/LAT/OBL BILAT [[id number]] Order #: [id number] FUTURE Prescriptions as of 02/17/2018 Sig: LISINOPRIL ORAL Take 10 mg by mouth once uri* SYNTHROID ORAL Take 50 mcg by mouth. METOPROLOL TARTRATE ORAL Take 50 mg by mouth twice wilver* RIVAROXABAN 20 MG TABLET Take 20 mg by mouth daily wit* BUDESONIDE-FORMOTEROL HFA 160* Inhale 2 Puffs as instructed * RAMELTEON 8 MG TABLET Take 8 mg by mouth daily at b* PRAMIPEXOLE 1 MG TABLET Take 1 mg by mouth three time* DEXLANSOPRAZOLE 60 MG CAPSULE* Take by mouth. ALENDRONATE 70 MG TABLET Take 70 mg by mouth once each* ESCITALOPRAM 10 MG TABLET Take 10 mg by mouth once uri* VITAMIN D2 50,000 UNIT CAPSULE Take 1 capsule by mouth once * HYDROCODONE 7.5 MG-ACETAMINOP* Take 1 tablet by mouth three * LYRICA 150 MG CAPSULE Take 1 capsule by mouth twice* TIZANIDINE 4 MG TABLET Take 1 tablet by mouth once d* TOLTERODINE ER 4 MG CAPSULE,E* Take 1 capsule by mouth once * TRAZODONE 100 MG TABLET Take 1 tablet by mouth daily * Medication notes this encounter HYDROCODONE 7.5 MG-ACETAMINOPHEN 325 MG TABLET >> Christian Win Ma 02/17/2018 2:44 PM >> CHRISTIAN WIN MA [facility] Feb 17, 2018 2:[address] Johnson Problem List As Of Date: 02/17/2018 (None) Other instructions from your clinician: Zabrina Ivory [address] [facility], [facility] [place] [address] PH: [phone] [place] [address] [facility] [address], [facility] [address] PH: [phone] [place] [address] [facility] [address] PH: [phone] [place] [address] [facility] [address] PH: [phone] or [phone] [place] [address] [address] , [facility] [address] PH: [phone] [place] [address] [facility] [address] PH: [phone] Encounter Status:Closed by IVON STRONG DPM on 02/18/18 PROGRESS Observed: 02/17/2018 Status: COMPLETED Source: [place] 2:54 PM [facility] REPOSITORY HNO ID: [id number] Author: Christian Win Ma Service: (none) Author Type: (none) Type: Progress Notes Filed: 02/18/2018 7:38 AM Note Text: AMB ROOMING INTAKE FLOWSHEET DATA Risk Screening Do you have concerns about personal safety or safety in the home?: No Pain Pain Score: 8/10 Pain Location: Foot-Left Description: Sore Duration Amount of Time: 3 Duration Units: Weeks Frequency: Intermittent Intervention: Medication Pt denies injury. States that she had severe foot pain and was unable to walk/WB. Was seen at [facility] ED on 01/30/18. She does not remember specifically was was done. 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 Patient reports constant 6-8/10 that just hurts bilaterally. Pain worse with WB. She does take [place], prescribed by her pain management, Dr. Johnson. States that since medication increased to 7.5/325 mg TID, it helps with pain. Patient unable to provide complete medical/surgical hx and current meds at this time to this MA. Patient agreeable to sign release form and fax to PCP, Dr. Fleming in [place]. Christian Win Ma XR FOOT 3V AP/LAT/OBL Observed: 02/17/2018 Status: F Source: [place] JAJA 1:51 PM [facility] REPOSITORY * * *Final Report* * * DATE OF EXAM: Feb 17 2018 1:51PM WRX [id number] - XR FOOT 3V AP/LAT/OBL JAJA / PROCEDURE REASON: Pain * * * * Physician Interpretation * * * * HISTORY: 72-YEAR-OLD FEMALE WITH Pain . left dorsal lateral midfoot pain TECHNIQUE: XR FOOT 3V AP/LAT/OBL JAJA Laterality: BILATERAL Number of different views (projections): 3 each COMPARISON: None RESULT: Narrowing the first MTP joint bilaterally with osteophytes. Narrowing of IP joint of the great toe bilaterally. Slight lateral subluxation sesamoids and first metatarsal and the left. Narrowing of PIP and DIP joints bilaterally. Narrowing of tarsometatarsal joints bilaterally and severe narrowing of the navicular medial cuneiform articulation with remodeling of the medial navicular is resultant osteophytes present. Narrowing of the talonavicular joint on the right and narrowing of intertarsal joint spaces bilaterally. Degenerative changes are worse on the right in the midfoot. This indication of fragmentation of bones of the large fragment at the navicular at the talonavicular articulation. Bilateral pes planus most severe on the right. Calcaneal enthesophyte insertion of the plantar fascia bilaterally. No acute fracture. IMPRESSION: MILD FOREFOOT DEGENERATIVE CHANGES. MODERATE TO SEVERE MIDFOOT DEGENERATIVE CHANGES, FINDINGS MAY REPRESENT EARLY CHANGES OF NEUROPATHIC JOINTS.. BILATERAL PES PLANUS. Aemt: DANIELA Transcribe Date/Time: Feb 18 2018 2:03P Dictated by : JOHN MERRILL MD This examination was interpreted and the report reviewed and electronically signed by: JOHN MERRILL MD on Feb 18 2018 2:08PM EST [id number] PROGRESS Observed: 02/17/2018 Status: COMPLETED Source: [place] 1:29 PM [facility] REPOSITORY O ID: [id number] Author: Raven Harding Service: (none) Author Type: (none) Type: Progress Notes Filed: 02/17/2018 1:52 PM Note Text: Radiology Service Progress Note PATIENT NAME: Laureen Morelos DATE OF SERVICE: February 17, 2018 TIME: 1:29 PM PATIENT IDENTITY VERIFICATION COMPLETED USING TWO (2) METHODS: Patient confirmed name verbally and Date of . PATIENT GENDER DATA: Female. status: : No status: NO. PATIENT RELEVANT IMPLANT DATA REVIEWED: Not Applicable RADIOLOGY DEPARTMENT: General X-ray: Exam(s) Completed: Lower Extremity X-Ray(s): Feet, Bilateral and Wt. Bearing: PERIPHERAL IV DATA: Not applicable SIGNED BY: Raven Harding February 17, 2018 1:29 PM XR WRIST MINIMUM 3 Observed: 02/04/2018 Status: F Source: [facility]IEWS RIGHT 11:11 AM [facility] REPOSITORY ORIGINAL XR WRIST MINIMUM 3 VIEWS RIGHT CLINICAL STATEMENT: pain. COMPARISON: None FINDINGS: No acute fracture or dislocation is identified. There is advanced degenerative change at the 1st carpal metacarpal joint with mild subluxation at this level. Milder degenerative changes are vi sible at the 1st interphalangeal joint and 1st metacarpophalangeal joints. There is joint height loss and subchondral sclerosis at the radiocarpal joints. No fracture is identified. There is no radiopaque foreign body. No bone erosion is identified. 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 Interpreted By: Gus Ospina Preliminary Report By: Gus Ospina Electronically Signed By: Gus Ospina Dictated Date: 02/04/2018 4:57:14 PM Prelim Date: 02/04/2018 4:57:14 PM Sign Date: 02/04/2018 5:00:00 PM UA Collected: 01/30/2018 Status: F Source: [facility] 9:07 [facility] REPOSITORY TYPE CODE TESTS RESULT OUT OF RANGE REFERENCE UNITS LAB SPCUA(NIKHIL NC) UA Specimen Type Clean Catch LAB CLRUA(NIKHIL NC) UA Color Yellow LAB APPUA(NIKHIL Clear NC) UA Appear Unknown Cloudy LAB SGUA(LOIN C) UA Spec Unknown Grav 1.010 LAB GLUA(LOIN Negative mg/dL C) UA Glucose Negative LAB BILUA(NIKHIL Negative NC) UA Bili Negative LAB KETUA(NIKHIL Negative mg/dL NC) UA Ketones Negative LAB BLDUA(NIKHIL Negative NC) UA Blood Unknown Trace-Intact LAB PHUA(LOIN C) UA pH 8.0 LAB PROUA(NIKHIL Negative mg/dL NC) UA Protein Negative LAB UROUA(NIKHIL E.U./dL NC) UA Unknown Urobilinogen 4.0 LAB NITUA(NIKHIL Negative NC) UA Nitrite Negative LAB LEUUA(NIKHIL Negative NC) UA Leuk Est Unknown Small Performed By: #### UA, UAMICAO #### [place] [address] [address] .URINALYSIS MICROSCOPIC Collected: 01/30/2018 Status: F Source: [facility] ([place]) 9:07 AM [facility] REPOSITORY TYPE CODE TESTS RESULT OUT OF RANGE REFERENCE UNITS LAB WBCUA(LOIN None Seen /hpf C) Unknown UA WBC 15-25 LAB RBCUA(LOIN None Seen /hpf C) Unknown UA RBC 0-5 LAB EPIUA(LOIN None Seen /hpf C) Unknown UA Squam Epithelial 5-10 LAB BACUA(LOIN /hpf C) Unknown UA Bacteria 3+ Performed By: #### UA, UAMICAO #### [place] [address] [place], [place] [address] Observed: 01/30/2018 Status: F Source: [facility] 9:07 AM [facility] REPOSITORY . MICRO - Microbiology PROCEDURE: Urine Culture [*1] SOURCE: Urine BODY SITE: COLLECTED DATE/TIME: 01/30/2018 09:07 EDT RECEIVED DATE/TIME: 01/30/2018 18:44 EDT START DATE/TIME: 01/30/2018 18:44 EDT FREE TEXT SOURCE: FINAL REPORTS Final Report [] Verified Date/Time/Personnel: 02/02/2018 14:21 EDT >100,000 organisms per mL Enterococcus faecalis PRELIMINARY REPORTS Preliminary Report [] Verified Date/Time/Personnel: 02/01/2018 12:03 EDT >100,000 organisms per mL Presumptive Group D Enterococcus Final identification and KRIS to follow. Preliminary Report [] Verified Date/Time/Personnel: 01/31/2018 12:57 EDT Culture results pending. SUSCEPTIBILITY RESULTS Enterococcus faecalis Antibiotic KRIS Dilutn KRIS Interp Ampicillin <=2 Susceptible Gentamicin Resistant synergy Nitrofurantoin <=32 Susceptible Vancomycin 2 Susceptible Performing Locations *1: This test was performed at: [facility], [address] [place] [address], [address] [place] [address] Performed By: #### CUR #### [address] [address] CBC Collected: 01/23/2018 Status: F Source: [facility] 6:26 AM [facility] REPOSITORY TYPE CODE TESTS RESULT OUT OF REFERENCE UNITS RANGE LAB WBC(LOINC) 4.60-10.80 10 3/mcL WBC 8.50 LAB RBCCT(LOINC 4.20-5.40 10 6/mcL ) RBC 4.46 LAB HGB(LOINC) 12.0-16.0 G/dL Hgb 12.3 LAB HCT(LOINC) 37.0-47.0 % Low Hct 36.3 LAB MCV(LOINC) 80.0-94.0 fL MCV 81.3 LAB MCH(LOINC) 27.0-31.2 pg MCH 27.6 LAB MCHC(LOINC) 33.0-37.0 G/dL MCHC 33.9 LAB RDW(LOINC) 11.5-14.5 % RDW 14.2 LAB PLT(LOINC) 130-400 10 3/mcL Platelet 241 LAB MPV(LOINC) 7.4-10.4 fL MPV 9.4 Performed By: #### CBC, ADIFF, ANEU #### [address] [address] #### BMP, GFR #### [address] [address] .AUTO DIFF Collected: 01/23/2018 Status: F Source: [facility] 6:26 AM [facility] REPOSITORY TYPE CODE TESTS RESULT OUT OF REFERENCE UNITS RANGE LAB KRISTIN(LOINC) 37.0-80.0 % Neutrophil % 76.7 LAB LYM(LOINC) 10.0-50.0 % Lymphocyte % 13.9 LAB MON(LOINC) 1.7-13.0 % Monocyte % 8.9 LAB EO(LOINC) 0.0-7.0 % Eosinophil % 0.1 LAB BAS(LOINC) 0.0-2.5 % Basophil % 0.4 LAB ABLYM(LOIN 0.77-3.85 10 3/mcL C) Lymphocyte, 1.20 Absolute LAB BENNY(LOINC 0.15-1.00 10 3/mcL ) Monocyte, 0.80 Absolute LAB AEOS(LOINC 0.00-0.40 10 3/mcL ) Eosinophil, 0.00 Absolute LAB ABAS(LOINC 0.00-0.19 10 3/mcL ) Basophil, 0.00 Absolute Performed By: #### CBC, ADIFF, ANEU #### [address] [address] #### BMP, GFR #### [address] [address] .NEUABS Collected: 01/23/2018 Status: F Source: [facility] 6:26 AM [facility] REPOSITORY TYPE CODE TESTS RESULT OUT OF REFERENCE UNITS RANGE LAB ANEU(LOINC) 2.85-6.16 10 3/mcL High Neutrophil, 6.50 Absolute Performed By: #### CBC, ADIFF, ANEU #### [address] [address] #### BMP, GFR #### [address] [address] BMP Collected: 01/23/2018 Status: F Source: [facility] 6:26 AM [facility] REPOSITORY TYPE CODE TESTS RESULT OUT OF REFERENCE UNITS RANGE LAB GLU(LOINC) 83-110 mg/dL Glucose High Level 149 LAB NA(LOINC) 136-145 mmol/L Sodium Level 144 LAB K(LOINC) 3.5-5.1 mmol/L Potassium Level 4.5 LAB CL(LOINC) 98-107 mmol/L Chloride 107 LAB CO2(LOINC) 23-31 mmol/L CO2 30 LAB EBAL(LOINC mEq/L ) Electrolyte Balance 7.0 LAB BUN(LOINC) 7-18 mg/dL BUN High 42 LAB CRE(LOINC) 0.55-1.02 mg/dL Creatinine High Lvl (s) 1.26 LAB BC(LOINC) 7-27 ratio High BUN/Creatinine 33 Ratio LAB CA(LOINC) 8.4-10.2 mg/dL Calcium Lvl 9.0 Performed By: #### CBC, ADIFF, ANEU #### [address] [address] #### BMP, GFR #### [address] [address] .GFR Collected: 01/23/2018 Status: F Source: [facility] 6:26 AM [facility] REPOSITORY TYPE CODE TESTS RESULT OUT OF REFERENCE UNITS RANGE LAB GFRAA(LOINC ml/min/1.73 ) sqm GFR 51 Armenian Result Comment: GFR Population mean for , Non- Americans Ages 20-29 = 116 mL/min/1.73 sq.m. Ages 30-39 = 107 mL/min/1.73 sq.m. Ages 40-49 = 99 mL/min/1.73 sq.m. Ages 50-59 = 93 mL/min/1.73 sq.m. Ages 60-69 = 85 mL/min/1.73 sq.m. Ages 70+ = 75 mL/min/1.73 sq.m. Chronic Kidney Disease: Less than 60 mL/min/1.73 square meters End Stage Renal Disease: Less than 15 mL/min/1.73 square meters LAB GFRNO(LOINC) ml/min/1.73sqm GFR Non- 42 Result Comment: GFR Population mean for , Non- Americans Ages 20-29 = 116 mL/min/1.73 sq.m. Ages 30-39 = 107 mL/min/1.73 sq.m. Ages 40-49 = 99 mL/min/1.73 sq.m. Ages 50-59 = 93 mL/min/1.73 sq.m. Ages 60-69 = 85 mL/min/1.73 sq.m. Ages 70+ = 75 mL/min/1.73 sq.m. Chronic Kidney Disease: Less than 60 mL/min/1.73 square meters End Stage Renal Disease: Less than 15 mL/min/1.73 square meters Performed By: #### CBC, ADIFF, ANEU #### [address] [address] #### BMP, GFR #### [place] [address] PHV Collected: 01/22/2018 Status: F Source: [facility] 12:05 [facility] REPOSITORY TYPE CODE TESTS RESULT OUT OF REFERENCE UNITS RANGE LAB PHV(LOINC) 7.35-7.45 Low pH Venous 7.24 Performed By: #### PHV #### [address] [address] #### BMP, GFR #### [place] [address] BMP Collected: 01/22/2018 Status: F Source: [facility] 12:05 [facility] REPOSITORY TYPE CODE TESTS RESULT OUT OF REFERENCE UNITS RANGE LAB GLU(LOINC) 83-110 mg/dL Glucose High Level 209 LAB NA(LOINC) 136-145 mmol/L Sodium Level 140 LAB K(LOINC) 3.5-5.1 mmol/L Potassium Level 3.9 LAB CL(LOINC) 98-107 mmol/L Chloride 102 LAB CO2(LOINC) 23-31 mmol/L CO2 28 LAB EBAL(LOINC mEq/L ) Electrolyte Balance 10.0 LAB BUN(LOINC) 7-18 mg/dL BUN High 51 LAB CRE(LOINC) 0.55-1.02 mg/dL Creatinine High Lvl (s) 3.18 LAB BC(LOINC) 7-27 ratio BUN/Creatinine 16 Ratio LAB CA(LOINC) 8.4-10.2 mg/dL Low Calcium Lvl 7.6 Performed By: #### PHV #### [facility] [address] [place], [place] [address] #### BMP, GFR #### [facility] [address] [place] [address] .GFR Collected: 01/22/2018 Status: F Source: [facility] 12:05 AM [facility] REPOSITORY TYPE CODE TESTS RESULT OUT OF REFERENCE UNITS RANGE LAB GFRAA(LOINC ml/min/1.73 ) sqm GFR 17 Armenian Result Comment: GFR Population mean for , Non- Americans Ages 20-29 = 116 mL/min/1.73 sq.m. Ages 30-39 = 107 mL/min/1.73 sq.m. Ages 40-49 = 99 mL/min/1.73 sq.m. Ages 50-59 = 93 mL/min/1.73 sq.m. Ages 60-69 = 85 mL/min/1.73 sq.m. Ages 70+ = 75 mL/min/1.73 sq.m. Chronic Kidney Disease: Less than 60 mL/min/1.73 square meters End Stage Renal Disease: Less than 15 mL/min/1.73 square meters LAB GFRNO(LOINC) ml/min/1.73sqm GFR Non- 14 Result Comment: GFR Population mean for , Non- Americans Ages 20-29 = 116 mL/min/1.73 sq.m. Ages 30-39 = 107 mL/min/1.73 sq.m. Ages 40-49 = 99 mL/min/1.73 sq.m. Ages 50-59 = 93 mL/min/1.73 sq.m. Ages 60-69 = 85 mL/min/1.73 sq.m. Ages 70+ = 75 mL/min/1.73 sq.m. Chronic Kidney Disease: Less than 60 mL/min/1.73 square meters End Stage Renal Disease: Less than 15 mL/min/1.73 square meters Performed By: #### PHV #### [address] [address] #### BMP, GFR #### [facility] [address] [place] [address] CBC Collected: 01/22/2018 Status: F Source: [facility] 12:05 [facility] REPOSITORY TYPE CODE TESTS RESULT OUT OF REFERENCE UNITS RANGE LAB WBC(LOINC) 4.60-10.80 10 3/mcL WBC 10.30 LAB RBCCT(LOINC 4.20-5.40 10 6/mcL ) RBC 4.83 LAB HGB(LOINC) 12.0-16.0 G/dL Hgb 13.1 LAB HCT(LOINC) 37.0-47.0 % Hct 39.3 LAB MCV(LOINC) 80.0-94.0 fL MCV 81.2 LAB MCH(LOINC) 27.0-31.2 pg MCH 27.0 LAB MCHC(LOINC) 33.0-37.0 G/dL MCHC 33.3 LAB RDW(LOINC) 11.5-14.5 % RDW 13.8 LAB PLT(LOINC) 130-400 10 3/mcL Platelet 224 LAB MPV(LOINC) 7.4-10.4 fL MPV 9.3 Performed By: #### CBC, ADIFF, ANEU #### [address] [address] .AUTO DIFF Collected: 01/22/2018 Status: F Source: [facility] 12:05 AM [facility] REPOSITORY TYPE CODE TESTS RESULT OUT OF REFERENCE UNITS RANGE LAB KRISTIN(LOINC) 37.0-80.0 % High Neutrophil % 89.5 LAB LYM(LOINC) 10.0-50.0 % Low Lymphocyte % 4.7 LAB MON(LOINC) 1.7-13.0 % Monocyte % 5.4 LAB EO(LOINC) 0.0-7.0 % Eosinophil % 0.0 LAB BAS(LOINC) 0.0-2.5 % Basophil % 0.4 LAB ABLYM(LOIN 0.77-3.85 10 3/mcL C) Low Lymphocyte, 0.50 Absolute LAB BENNY(LOINC 0.15-1.00 10 3/mcL ) Monocyte, 0.50 Absolute LAB AEOS(LOINC 0.00-0.40 10 3/mcL ) Eosinophil, 0.00 Absolute LAB ABAS(LOINC 0.00-0.19 10 3/mcL ) Basophil, 0.00 Absolute Performed By: #### CBCJEAN, ANEU #### [address] [address] .NEUABS Collected: 01/22/2018 Status: F Source: [facility] 12:05 AM [facility] REPOSITORY TYPE CODE TESTS RESULT OUT OF REFERENCE UNITS RANGE LAB ANEU(LOINC) 2.85-6.16 10 3/mcL High Neutrophil, 9.20 Absolute Performed By: #### JEAN SOTO, ANEU #### [address] [address] PHV Collected: 01/21/2018 Status: F Source: [facility] 12:36 PM [facility] REPOSITORY TYPE CODE TESTS RESULT OUT OF REFERENCE UNITS RANGE LAB PHV(LOINC) 7.35-7.45 Low pH Venous 7.24 Performed By: #### PHV #### [place] [address] #### LAC, PBNP #### [place] [address] LAC Collected: 01/21/2018 Status: F Source: [facility] 12:36 PM [facility] REPOSITORY TYPE CODE TESTS RESULT OUT OF REFERENCE UNITS RANGE LAB LAC(LOINC) 0.4-2.0 mmol/L Lactic Acid 1.2 Lvl Performed By: #### PHV #### [place] [address] #### LAC, PBNP #### [place] [address] PBNP Collected: 01/21/2018 Status: F Source: [facility] 12:36 [facility] REPOSITORY TYPE CODE TESTS RESULT OUT OF REFERENCE UNITS RANGE LAB PBNP(LOINC) 0-125 pg/mL High N-Terminal 1225 proBNP Result Comment: NT-proBNP results of less than 300 pg/mL effectively rules out acute congestive heart failure with 99% negative predictive value. Performed By: #### PHV #### [facility] [address] [place], [place] [address] #### LAC, PBNP #### [facility] [address] [place] [address] OSMOS Collected: 01/21/2018 Status: F Source: [facility] 12:36 PM [facility] REPOSITORY TYPE CODE TESTS RESULT OUT OF REFERENCE UNITS RANGE LAB OSMOS(LOIN 275-300 mOsm/kg C) Osmolality (s) 291 Performed By: #### OSMOS #### [address] [address] US RENAL Observed: 01/21/2018 Status: F Source: [facility] 12:10 PM [facility] REPOSITORY ORIGINAL US RENAL (US RETROPERITONEUM LIMITED) CLINICAL STATEMENT: acute kidney injury. COMPARISON: CT abdomen/pelvis 07/28/2015 FINDINGS: The kidneys are normal in size and contour. There are focal areas of cortical thinning of the RIGHT kidney with mild increased echogenicity, which may relate to scarring. Cortical thickness an d echogenicity of the LEFT kidney is normal. The right and left kidneys measure 11.9 x 6.1 x 5.8 cm and 11.6 x 5.0 x 5.8 cm in size, respectively. There is no renal calcification, solid renal mass, pelv icaliectasis, or perirenal fluid. There are bilateral renal cysts. The largest on the RIGHT measures 4.9 x 4.2 x 4.5 cm and demonstrates thin internal septations. The largest cyst on the LEFT measures 3.9 x 3.2 x 3.2 cm. The bladder was empty and not visualized. IMPRESSION: Bilateral renal cysts. No evidence of hydronephrosis. Bladder not visualized. I have personally reviewed the images of this examination and agree with the resident's findings and interpretation. Interpreted By: Muna Fernandez MD Preliminary Report By: Sosa Spivey DO Electronically Signed By: Muna Fernandez MD Dictated Date: 01/21/2018 5:55:00 PM Prelim Date: 01/21/2018 6:00:53 PM Sign Date: 01/21/2018 6:55:20 PM CRUR Collected: 01/21/2018 Status: F Source: [facility] 11:34 AM [facility] REPOSITORY TYPE CODE TESTS RESULT OUT OF REFERENCE UNITS RANGE LAB CRU(LOINC) 28.0-117.0 mg/dL U High Creatinine 168.4 Performed By: #### CRCONSTANTIN, PRUR, NAUR, OSMOU #### [place] [address] PRUR Collected: 01/21/2018 Status: F Source: [facility] 11:34 AM [facility] REPOSITORY TYPE CODE TESTS RESULT OUT OF REFERENCE UNITS RANGE LAB PRU(LOINC) 0-11 mg/dL U High Protein 86 Performed By: #### CRCONSTANTIN, PRUR, NAUR, OSMOU #### [place] [address] NAUR Collected: 01/21/2018 Status: F Source: [facility] 11:34 AM [facility] REPOSITORY TYPE CODE TESTS RESULT OUT OF REFERENCE UNITS RANGE LAB ARABELLA(LOINC) 20-110 mmol/L U Sodium 56 Performed By: #### JANI, PRUR, NAUR, OSMOU #### [place] [address] OSMOU Collected: 01/21/2018 Status: F Source: [facility] 11:34 AM [facility] REPOSITORY TYPE CODE TESTS RESULT OUT OF REFERENCE UNITS RANGE LAB OSMOU(LOIN 390-1090 mOsm/kg C) U Osmolality 495 Performed By: #### JNAI, CHACHO, NAUR, OSMOU #### [place] [address] EOS Collected: 01/21/2018 Status: F Source: [facility] 11:34 AM [facility] REPOSITORY TYPE CODE TESTS RESULT OUT OF REFERENCE UNITS RANGE LAB EOSRC(LOIN C) Eosinophil Spec Urine Type LAB EOSMR(LOIN C) Eos Smear 0 Result Comment: The units for an eosinophil smear depend upon specimen type: Stool, sputum, nasal specimens: number of cells/hp field Urine, bronchial lavage: number of cells/100 cells (%) Performed By: #### EOS #### [place] [address] CBC Collected: 01/21/2018 Status: F Source: [facility] 9:47 AM [facility] REPOSITORY TYPE CODE TESTS RESULT OUT OF REFERENCE UNITS RANGE LAB WBC(LOINC) 4.60-10.80 10 3/mcL WBC 10.20 LAB RBCCT(LOINC 4.20-5.40 10 6/mcL ) RBC 4.47 LAB HGB(LOINC) 12.0-16.0 G/dL Hgb 12.5 LAB HCT(LOINC) 37.0-47.0 % Low Hct 36.7 LAB MCV(LOINC) 80.0-94.0 fL MCV 82.0 LAB MCH(LOINC) 27.0-31.2 pg MCH 27.9 LAB MCHC(LOINC) 33.0-37.0 G/dL MCHC 34.1 LAB RDW(LOINC) 11.5-14.5 % RDW 14.4 LAB PLT(LOINC) 130-400 10 3/mcL Platelet 217 LAB MPV(LOINC) 7.4-10.4 fL MPV 9.8 Performed By: #### CBCJEAN, ANEU #### [address] [address] #### CMP, GFR #### [address] [address] .AUTO DIFF Collected: 01/21/2018 Status: F Source: [facility] 9:47 [facility] REPOSITORY TYPE CODE TESTS RESULT OUT OF REFERENCE UNITS RANGE LAB KRISTIN(LOINC) 37.0-80.0 % Neutrophil % 75.8 LAB LYM(LOINC) 10.0-50.0 % Lymphocyte % 14.2 LAB MON(LOINC) 1.7-13.0 % Monocyte % 8.7 LAB EO(LOINC) 0.0-7.0 % Eosinophil % 0.9 LAB BAS(LOINC) 0.0-2.5 % Basophil % 0.4 LAB ABLYM(LOIN 0.77-3.85 10 3/mcL C) Lymphocyte, 1.50 Absolute LAB BENNY(LOINC 0.15-1.00 10 3/mcL ) Monocyte, 0.90 Absolute LAB AEOS(LOINC 0.00-0.40 10 3/mcL ) Eosinophil, 0.10 Absolute LAB ABAS(LOINC 0.00-0.19 10 3/mcL ) Basophil, 0.00 Absolute Performed By: #### CBC, ADIFF, ANEU #### [address] [address] #### CMP, GFR #### [address] [id number] .NEUABS Collected: 01/21/2018 Status: F Source: [facility] 9:47 AM [facility] REPOSITORY TYPE CODE TESTS RESULT OUT OF REFERENCE UNITS RANGE LAB ANEU(LOINC) 2.85-6.16 10 3/mcL High Neutrophil, 7.70 Absolute Performed By: #### CBC, ADIFF, ANEU #### Sally Beaufort [address] [place], [place] [address] #### CMP, GFR #### [facility] [address] [place] [id number] CMP Collected: 01/21/2018 Status: F Source: [facility] 9:47 AM [facility] REPOSITORY TYPE CODE TESTS RESULT OUT OF REFERENCE UNITS RANGE LAB GLU(LOINC) 83-110 mg/dL Glucose High Level 123 LAB NA(LOINC) 136-145 mmol/L Sodium Level 139 LAB K(LOINC) 3.5-5.1 mmol/L Potassium Level 3.7 LAB CL(LOINC) 98-107 mmol/L Chloride 102 LAB CO2(LOINC) 23-31 mmol/L CO2 25 LAB EBAL(LOINC mEq/L ) Electrolyte Balance 12.0 LAB BUN(LOINC) 7-18 mg/dL BUN High 48 LAB CRE(LOINC) 0.55-1.02 mg/dL Creatinine High Lvl (s) 4.21 LAB BC(LOINC) 7-27 ratio BUN/Creatinine 11 Ratio LAB CA(LOINC) 8.4-10.2 mg/dL Low Calcium Lvl 7.6 LAB PROT(LOINC 6.4-8.2 G/dL ) Low Total Protein 5.7 LAB ALB(LOINC) 3.4-4.8 G/dL Low Albumin Level 2.5 LAB GLB(LOINC) G/dL Globulin 3.2 LAB AG(LOINC) 1.1-2.5 ratio Low A/G Ratio 0.8 LAB BILT(LOINC 0.2-1.0 mg/dL ) Bili Total 0.3 LAB AP(LOINC) 40-135 U/L Alk Phos 43 LAB AST(LOINC) 10-40 U/L AST/SGOT High 86 LAB ALT(LOINC) 10-35 U/L ALT/SGPT High 48 Performed By: #### CBC, ADIFF, ANEU #### [address] [place] [address] [place], [place] [address] #### CMP, GFR #### [address] [address] .GFR Collected: 01/21/2018 Status: F Source: [place] 9:47 AM [facility] REPOSITORY TYPE CODE TESTS RESULT OUT OF REFERENCE UNITS RANGE LAB GFRAA(LOINC ml/min/1.73 ) sqm GFR 13 Armenian Result Comment: GFR Population mean for , Non- Americans Ages 20-29 = 116 mL/min/1.73 sq.m. Ages 30-39 = 107 mL/min/1.73 sq.m. Ages 40-49 = 99 mL/min/1.73 sq.m. Ages 50-59 = 93 mL/min/1.73 sq.m. Ages 60-69 = 85 mL/min/1.73 sq.m. Ages 70+ = 75 mL/min/1.73 sq.m. Chronic Kidney Disease: Less than 60 mL/min/1.73 square meters End Stage Renal Disease: Less than 15 mL/min/1.73 square meters LAB GFRNO(LOINC) ml/min/1.73sqm GFR Non- 10 Result Comment: GFR Population mean for , Non- Americans Ages 20-29 = 116 mL/min/1.73 sq.m. Ages 30-39 = 107 mL/min/1.73 sq.m. Ages 40-49 = 99 mL/min/1.73 sq.m. Ages 50-59 = 93 mL/min/1.73 sq.m. Ages 60-69 = 85 mL/min/1.73 sq.m. Ages 70+ = 75 mL/min/1.73 sq.m. Chronic Kidney Disease: Less than 60 mL/min/1.73 square meters End Stage Renal Disease: Less than 15 mL/min/1.73 square meters Performed By: #### CBC, ADIFF, ANEU #### [place] [address] [place], [place] [address] #### CMP, GFR #### [address] [address] CORTA Collected: 01/21/2018 Status: F Source: [place] 9:47 AM [facility] REPOSITORY TYPE CODE TESTS RESULT OUT OF RANGE REFERENCE UNITS LAB CORTA(LOINC 6.5-26.0 mcg/dL ) Cortisol, 21.8 AM Performed By: #### CORTA #### [place] [address] UA Collected: 01/21/2018 Status: F Source: [facility] 9:45 AM [facility] REPOSITORY TYPE CODE TESTS RESULT OUT OF RANGE REFERENCE UNITS LAB SPCUA(NIKHIL NC) UA Specimen Type Not Given LAB CLRUA(NIKHIL NC) UA Color Unknown [place] LAB APPUA(NIKHIL Clear NC) UA Appear Unknown Cloudy LAB SGUA(LOIN C) UA Spec Unknown Grav >=1.030 LAB GLUA(LOIN Negative mg/dL C) UA Glucose Negative LAB BILUA(NIKHIL Negative NC) UA Bili Unknown Small LAB KETUA(NIKHIL Negative mg/dL NC) UA Ketones Unknown 5 LAB BLDUA(NIKHIL Negative NC) UA Blood Unknown Moderate-Inta ct LAB PHUA(LOIN C) UA pH 6.5 LAB PROUA(NIKHIL Negative mg/dL NC) UA Protein 30 LAB UROUA(NIKHIL E.U./dL NC) UA Urobilinogen 0.2 LAB NITUA(NIKHIL Negative NC) UA Nitrite Negative LAB LEUUA(NIKHIL Negative NC) UA Leuk Est Unknown Moderate Performed By: #### UA, UAMICAO #### [address] [address] .URINALYSIS MICROSCOPIC Collected: 01/21/2018 Status: F Source: [place] ([place]) 9:45 AM [facility] REPOSITORY TYPE CODE TESTS RESULT OUT OF RANGE REFERENCE UNITS LAB WBCUA(LOIN None Seen /hpf C) Unknown UA WBC LOADED LAB RBCUA(LOIN None Seen /hpf C) Unknown UA RBC 0-5 LAB EPIUA(LOIN None Seen /hpf C) Unknown UA Squam Epithelial 0-5 LAB AMOUA(LOIN /hpf C) UA Amorphus 1+ LAB BACUA(LOIN /hpf C) Unknown UA Bacteria 4+ Performed By: #### UA, UAMICAO #### [address] [address] XR CHEST 1 VIEW Observed: 01/21/2018 Status: F Source: [facility] 9:13 AM [facility] REPOSITORY ORIGINAL XR CHEST 1 VIEW portable semiupright 9:06 AM CLINICAL STATEMENT: cough, hypoxia COMPARISON: 08/08/2017 FINDINGS: Stable heart size and mediastinal contours. There is crowding of lung markings bilaterally from hypoventilatory changes and patient rotation. This could obscure pathology. There is also increa sed LEFT retrocardiac density which is probably artifactual also. Otherwise no definite acute abnormality is seen. Degenerative changes in the shoulders. IMPRESSION: Suboptimal evaluation due to patient rotation and hypoventilatory changes. No definite acute process is seen but follow-up radiographs are suggested as clinically warranted. Interpreted By: Aguilar Mccloud MD Preliminary Report By: Aguilar Mccloud MD Electronically Signed By: Aguilar Mccloud MD Dictated Date: 01/21/2018 9:30:31 AM Prelim Date: 01/21/2018 9:30:31 AM Sign Date: 01/21/2018 9:31:45 AM CBC Collected: 01/20/2018 Status: F Source: [facility] 5:16 AM [facility] REPOSITORY TYPE CODE TESTS RESULT OUT OF REFERENCE UNITS RANGE LAB WBC(LOINC) 4.60-10.80 10 3/mcL High WBC 13.40 LAB RBCCT(LOINC 4.20-5.40 10 6/mcL ) RBC 5.22 LAB HGB(LOINC) 12.0-16.0 G/dL Hgb 14.3 LAB HCT(LOINC) 37.0-47.0 % Hct 42.4 LAB MCV(LOINC) 80.0-94.0 fL MCV 81.2 LAB MCH(LOINC) 27.0-31.2 pg MCH 27.5 LAB MCHC(LOINC) 33.0-37.0 G/dL MCHC 33.8 LAB RDW(LOINC) 11.5-14.5 % RDW 14.0 LAB PLT(LOINC) 130-400 10 3/mcL Platelet 206 LAB MPV(LOINC) 7.4-10.4 fL MPV 9.5 Performed By: #### CBC, ADIFF, ANEU #### [facility] [address] [place], [place] [address] #### GFR, BMP, URIC #### [address] [address] .AUTO DIFF Collected: 01/20/2018 Status: F Source: [facility] 5:16 AM [facility] REPOSITORY TYPE CODE TESTS RESULT OUT OF REFERENCE UNITS RANGE LAB KRISTIN(LOINC) 37.0-80.0 % Neutrophil % 72.8 LAB LYM(LOINC) 10.0-50.0 % Lymphocyte % 13.3 LAB MON(LOINC) 1.7-13.0 % Monocyte High % 13.2 LAB EO(LOINC) 0.0-7.0 % Eosinophil % 0.2 LAB BAS(LOINC) 0.0-2.5 % Basophil % 0.5 LAB ABLYM(LOIN 0.77-3.85 10 3/mcL C) Lymphocyte, 1.80 Absolute LAB BENNY(LOINC 0.15-1.00 10 3/mcL ) High Monocyte, 1.80 Absolute LAB AEOS(LOINC 0.00-0.40 10 3/mcL ) Eosinophil, 0.00 Absolute LAB ABAS(LOINC 0.00-0.19 10 3/mcL ) Basophil, 0.10 Absolute Performed By: #### CBC, ADIFF, ANEU #### [place] [address] #### GFR, BMP, URIC #### [place] [address] .NEUABS Collected: 01/20/2018 Status: F Source: [facility] 5:16 AM [facility] REPOSITORY TYPE CODE TESTS RESULT OUT OF REFERENCE UNITS RANGE LAB ANEU(LOINC) 2.85-6.16 10 3/mcL High Neutrophil, 9.80 Absolute Performed By: #### CBC, ADIFF, ANEU #### [place] [address] #### GFR, BMP, URIC #### [place] [address] .GFR Collected: 01/20/2018 Status: F Source: [facility] 5:16 AM [facility] REPOSITORY TYPE CODE TESTS RESULT OUT OF REFERENCE UNITS RANGE LAB GFRAA(LOINC ml/min/1.73 ) sqm GFR 29 Armenian Result Comment: GFR Population mean for , Non- Americans Ages 20-29 = 116 mL/min/1.73 sq.m. Ages 30-39 = 107 mL/min/1.73 sq.m. Ages 40-49 = 99 mL/min/1.73 sq.m. Ages 50-59 = 93 mL/min/1.73 sq.m. Ages 60-69 = 85 mL/min/1.73 sq.m. Ages 70+ = 75 mL/min/1.73 sq.m. Chronic Kidney Disease: Less than 60 mL/min/1.73 square meters End Stage Renal Disease: Less than 15 mL/min/1.73 square meters LAB GFRNO(LOINC) ml/min/1.73sqm GFR Non- 24 Result Comment: GFR Population mean for , Non- Americans Ages 20-29 = 116 mL/min/1.73 sq.m. Ages 30-39 = 107 mL/min/1.73 sq.m. Ages 40-49 = 99 mL/min/1.73 sq.m. Ages 50-59 = 93 mL/min/1.73 sq.m. Ages 60-69 = 85 mL/min/1.73 sq.m. Ages 70+ = 75 mL/min/1.73 sq.m. Chronic Kidney Disease: Less than 60 mL/min/1.73 square meters End Stage Renal Disease: Less than 15 mL/min/1.73 square meters Performed By: #### CBC, ADIFF, ANEU #### [address] [address] #### GFR, BMP, URIC #### [address] [address] BMP Collected: 01/20/2018 Status: F Source: [facility] 5:16 AM [facility] REPOSITORY TYPE CODE TESTS RESULT OUT OF REFERENCE UNITS RANGE LAB GLU(LOINC) 83-110 mg/dL Glucose High Level 119 LAB NA(LOINC) 136-145 mmol/L Sodium Level 139 LAB K(LOINC) 3.5-5.1 mmol/L Potassium Level 4.3 LAB CL(LOINC) 98-107 mmol/L Chloride 100 LAB CO2(LOINC) 23-31 mmol/L CO2 30 LAB EBAL(LOINC mEq/L ) Electrolyte Balance 9.0 LAB BUN(LOINC) 7-18 mg/dL BUN High 30 LAB CRE(LOINC) 0.55-1.02 mg/dL Creatinine High Lvl (s) 2.05 LAB BC(LOINC) 7-27 ratio BUN/Creatinine 15 Ratio LAB CA(LOINC) 8.4-10.2 mg/dL Calcium Lvl 8.8 Performed By: #### CBC, ADIFF, ANEU #### [place] [address] [place], [place] [address] #### GFR, BMP, URIC #### [address] [address] URIC Collected: 01/20/2018 Status: F Source: [facility] 5:16 AM [facility] REPOSITORY TYPE CODE TESTS RESULT OUT OF RANGE REFERENCE UNITS LAB URIC(LOINC) 2.6-6.2 mg/dL High Uric Acid 8.5 Lvl Performed By: #### CBC, ADIFF, ANEU #### [address] [address] #### GFR, BMP, URIC #### [address] [address] CBC Collected: 01/19/2018 Status: F Source: [facility] 12:24 PM [facility] REPOSITORY TYPE CODE TESTS RESULT OUT OF REFERENCE UNITS RANGE LAB WBC(LOINC) 4.60-10.80 10 3/mcL High WBC 12.50 LAB RBCCT(LOINC 4.20-5.40 10 6/mcL ) High RBC 5.59 LAB HGB(LOINC) 12.0-16.0 G/dL Hgb 15.4 LAB HCT(LOINC) 37.0-47.0 % Hct 44.9 LAB MCV(LOINC) 80.0-94.0 fL MCV 80.2 LAB MCH(LOINC) 27.0-31.2 pg MCH 27.5 LAB MCHC(LOINC) 33.0-37.0 G/dL MCHC 34.3 LAB RDW(LOINC) 11.5-14.5 % RDW 14.3 LAB PLT(LOINC) 130-400 10 3/mcL Platelet 204 LAB MPV(LOINC) 7.4-10.4 fL MPV 8.6 Performed By: #### CBC, ADIFF, ANEU #### [address] [address] #### BMP, GFR #### [place] [address] .AUTO DIFF Collected: 01/19/2018 Status: F Source: [facility] 12:24 PM [facility] REPOSITORY TYPE CODE TESTS RESULT OUT OF REFERENCE UNITS RANGE LAB KRISTIN(LOINC) 37.0-80.0 % Neutrophil % 74.0 LAB LYM(LOINC) 10.0-50.0 % Lymphocyte % 12.3 LAB MON(LOINC) 1.7-13.0 % Monocyte High % 13.1 LAB EO(LOINC) 0.0-7.0 % Eosinophil % 0.1 LAB BAS(LOINC) 0.0-2.5 % Basophil % 0.5 LAB ABLYM(LOIN 0.77-3.85 10 3/mcL C) Lymphocyte, 1.50 Absolute LAB BENNY(LOINC 0.15-1.00 10 3/mcL ) High Monocyte, 1.60 Absolute LAB AEOS(LOINC 0.00-0.40 10 3/mcL ) Eosinophil, 0.00 Absolute LAB ABAS(LOINC 0.00-0.19 10 3/mcL ) Basophil, 0.10 Absolute Performed By: #### CBC, ADIFF, ANEU #### [address] [address] #### BMP, GFR #### [place] [address] .NEUABS Collected: 01/19/2018 Status: F Source: [facility] 12:24 [facility] REPOSITORY TYPE CODE TESTS RESULT OUT OF REFERENCE UNITS RANGE LAB ANEU(LOINC) 2.85-6.16 10 3/mcL High Neutrophil, 9.20 Absolute Performed By: #### CBC, ADIFF, ANEU #### [address] [address] #### BMP, GFR #### [place] [address] BMP Collected: 01/19/2018 Status: F Source: [facility] 12:24 PM [facility] REPOSITORY TYPE CODE TESTS RESULT OUT OF REFERENCE UNITS RANGE LAB GLU(LOINC) 83-110 mg/dL Glucose Level 105 LAB NA(LOINC) 136-145 mmol/L Sodium Level 140 LAB K(LOINC) 3.5-5.1 mmol/L Potassium Level 3.7 LAB CL(LOINC) 98-107 mmol/L Chloride 100 LAB CO2(LOINC) 23-31 mmol/L CO2 31 LAB EBAL(LOINC mEq/L ) Electrolyte Balance 9.0 LAB BUN(LOINC) 7-18 mg/dL BUN 18 LAB CRE(LOINC) 0.55-1.02 mg/dL Creatinine Lvl (s) 0.82 LAB BC(LOINC) 7-27 ratio BUN/Creatinine 22 Ratio LAB CA(LOINC) 8.4-10.2 mg/dL Calcium Lvl 8.8 Performed By: #### CBC, ADIFF, ANEU #### [facility] [address] [place], [place] [address] #### BMP, GFR #### [address] [address] .GFR Collected: 01/19/2018 Status: F Source: [facility] 12:24 PM [facility] REPOSITORY TYPE CODE TESTS RESULT OUT OF REFERENCE UNITS RANGE LAB GFRAA(LOINC ml/min/1.73 ) sqm GFR 83 Armenian Result Comment: GFR Population mean for , Non- Americans Ages 20-29 = 116 mL/min/1.73 sq.m. Ages 30-39 = 107 mL/min/1.73 sq.m. Ages 40-49 = 99 mL/min/1.73 sq.m. Ages 50-59 = 93 mL/min/1.73 sq.m. Ages 60-69 = 85 mL/min/1.73 sq.m. Ages 70+ = 75 mL/min/1.73 sq.m. Chronic Kidney Disease: Less than 60 mL/min/1.73 square meters End Stage Renal Disease: Less than 15 mL/min/1.73 square meters LAB GFRNO(LOINC) ml/min/1.73sqm GFR Non- 69 Result Comment: GFR Population mean for , Non- Americans Ages 20-29 = 116 mL/min/1.73 sq.m. Ages 30-39 = 107 mL/min/1.73 sq.m. Ages 40-49 = 99 mL/min/1.73 sq.m. Ages 50-59 = 93 mL/min/1.73 sq.m. Ages 60-69 = 85 mL/min/1.73 sq.m. Ages 70+ = 75 mL/min/1.73 sq.m. Chronic Kidney Disease: Less than 60 mL/min/1.73 square meters End Stage Renal Disease: Less than 15 mL/min/1.73 square meters Performed By: #### CBC, ADIFF, ANEU #### [facility] [address] [place], [place] [address] #### BMP, GFR #### [place] [id number] [place] [address] XR FOOT MINIMUM 3 Observed: 01/19/2018 Status: F Source: [employer] RIGHT 12:18 PM [facility] REPOSITORY ORIGINAL XR FOOT MINIMUM 3 VIEWS RIGHT CLINICAL STATEMENT: pain. COMPARISON: None FINDINGS: No acute fracture or dislocation is identified. Widening of the joint space between the tarsal navicular bone and cuneiform ossicles is seen with sclerosis and fragmentation of the cuneiform o ssicles is present. There is no radiopaque foreign body. IMPRESSION: Findings suggestive of Charcot joint changes involving the RIGHT midfoot. Interpreted By: Kelby Cedillo MD Preliminary Report By: Kelby Cedillo MD Electronically Signed By: Kelby Cedillo MD Dictated Date: 01/19/2018 12:59:17 PM Prelim Date: 01/19/2018 12:59:17 PM Sign Date: 01/19/2018 1:00:48 PM XR FOOT MINIMUM 3 Observed: 01/19/2018 Status: F Source: [facility] VIEWS LEFT 12:17 PM [facility] REPOSITORY ORIGINAL XR FOOT MINIMUM 3 VIEWS LEFT CLINICAL STATEMENT: pain. COMPARISON: None FINDINGS: No acute fracture or dislocation is identified. Sclerosis and spurring is present in the midfoot at the junction of the navicular and cuneiform ossicles. Degenerative changes are also present at the cuboid/5th metatarsal joint space and 1st metatarsal phalangeal joint. There is no radiopaque foreign body or soft tissue swelling. IMPRESSION: Degenerative changes LEFT mid foot and 1st metatarsal phalangeal joint Interpreted By: Kelby Cedillo MD Preliminary Report By: Kelby Cedillo MD Electronically Signed By: Kelby Cedillo MD Dictated Date: 01/19/2018 12:56:34 PM Prelim Date: 01/19/2018 12:56:34 PM Sign Date: 01/19/2018 12:59:08 PM URINE DRUG SCREEN Collected: 12/22/2017 Status: F Source: [place] ([place]) 11:47 AM [facility] REPOSITORY Order Comment: Comments: [id number] URINE DRUG SCREEN List of Drugs Taken or Suspected? UNK TYPE CODE TESTS RESULT OUT OF RANGE REFERENCE UNITS LAB L505.0075 TO BE Normal CONFIRMED Result Comment: CONFIRMATORY TESTING FOR ALL POSITIVE URINE DRUG SCREEN RESULTS WILL ONLY BE SENT OUT UPON PHYSICIAN ORDER. VISTA Urine Drug Screen methods provide only preliminary analytical test results. A more specific alternate chemical method must be used in order to obtain a confirmed analytical result. Gas chromatography/mass spectrometery (GC/MS) is the preferred confirmatory method. Clinical consideration and professional judgement should be applied to any drug of abuse test result, particularly when preliminary positive results are used. URINE TCA TESTING MUST BE ORDERED SEPARATELY. USE TEST MNEMONIC: [facility] LAB L505.5005 VISTA UDS PH 5 Normal LAB L505.5015 <1000 ng/mL AMPHETAMINES Normal NEGATIVE LAB L505.5025 < 200 ng/mL BARBITIURATES Normal NEGATIVE LAB L505.5035 < 200 ng/mL BENZODIAZIPINE Normal NEGATIVE LAB L505.5045 < 300 ng/mL COCAINE Normal NEGATIVE LAB L505.5055 < 500 ng/mL ECSTACY Normal NEGATIVE LAB L505.5065 < 300 ng/mL METHADONE Normal NEGATIVE LAB L505.5075 < 300 ng/mL OPIATES Normal NEGATIVE LAB L505.5085 < 25 ng/mL PCP Normal NEGATIVE LAB L505.5095 < 50 ng/mL THC Normal NEGATIVE Performed By: #### L505.5000 #### [facility] [place], [address] MISCELLANEOUS LAB Collected: 12/22/2017 Status: F Source: [facility] PROCEDURE 11:47 AM [facility] REPOSITORY Order Comment: Comments: [id number] URINE DRUG SCREEN Test(s) Ordered: [id number] URINE DRUG SCREEN TYPE CODE TESTS RESULT OUT OF RANGE REFERENCE UNITS LAB L801.1541 Normal [facility] TEST Result Comment: TEST RESULT UNITS REF INTERVAL [id number] 6+Oxycodone-Bund Amphetamines, Urine Negative ng/mL Kzbfhd=9394 Amphetamine test includes Amphetamine and Methamphetamine. Barbiturate Negative ng/mL Eatxjs=850 Benzodiazepines Negative ng/mL Cgllht=409 Cannabinoids Negative ng/mL Cutoff=20 Cocaine (Metabolite) Negative ng/mL Crrmxy=977 Opiates Negative ng/mL Jzmbes=094 Opiate test includes Codeine, Morphine, Hydromorphone, Hydrocodone. Oxycodone/Oxymorphone, Urine Negative ng/mL Wyoocm=590 Test includes Oxycodone and Oxymorphone TESTING PERFORMED AT [facility]. ORIGINAL REPORT ON FILE IN LAB CONTAINS ADDITIONAL TEST SITE INFORMATION. Performed By: #### L801.1541 #### [facility] [address] [place] [address], [address] NON-LIFE E[employer]ICHMENT SPECIALIST CYTOLOGY Observed: 12/14/2017 Status: F Source: [facility] 2:06 PM [facility] REPOSITORY . Pathology Reports Accession: Collected Date/Time: Received Date/Time: Pathologist: [id number] 12/14/2017 14:06 EDT 12/15/2017 11:45 EDT DO SIMON NDIAYE Non-Public Address Servicer Cytology Report CLINICAL INFORMATION: RIGHT THYROID NODULE [id number], [id number], [id number], [id number], [id number] DIAGNOSIS: MAINLY BLOOD AND COLLOID. NO FOLLICULAR CELLS PRESENT. INADEQUATE SPECIMEN. SPECIMEN: RIGHT THYROID FINE NEEDLE ASPIRATION GROSS DESCRIPTION: # of Blocks: 1 # of Monolayers: 1 # of Smears: 8 Volume (ml) 30 Color: FIXED PINK FLUID Electronically Signed by Pathology report verified by [facility] Screened by: JOSE CHAPMAN Electronically signed by SIMON NDIAYE DO Sign-Out Date: 12/16/2017 09:40 Performing Lab: [address] Performed By: #### NGCR #### [place] [address] US BIOPSY FNA Observed: 12/14/2017 Status: F Source: [facility] 2:00 PM [facility] REPOSITORY ORIGINAL Images acquired, not reported on this accession number. US BIOPSY FNA Observed: 12/14/2017 Status: F Source: [place] 2:00 PM [facility] REPOSITORY ORIGINAL Images acquired, not reported on this accession number. LIPID Collected: 11/27/2017 Status: F Source: [place] 10:46 AM [facility] REPOSITORY TYPE CODE TESTS RESULT OUT OF REFERENCE UNITS RANGE LAB CHOL(LOINC 131-200 mg/dL ) Cholesterol 185 Result Comment: Cholesterol Reference Interval: Less than 200 Desirable 200-239 Borderline high risk 240 and above High risk LAB TRIG(LOINC) 40-150 mg/dL Triglycerides 61 Result Comment: Triglyceride Reference Interval: Less than 150 Normal 150-199 Borderline high risk 200-499 High risk 500 or higher Very high risk LAB HD(LOINC) 35-90 mg/dL HDL Cholesterol 68 Result Comment: HDL Reference Interval: Less than 40 Low - high risk 60 or above Optimal/lowers risk LAB LDL(LOINC) 0-130 mg/dL LDL Cholesterol 105 Result Comment: LDL is a calculated result and requires a 12-hr fast. LDL Reference Interval: Less than 100 Optimal 100-129 Near or above optimal 130-159 Borderline high risk 160-189 High risk 190 and above Very high risk Performed By: #### LIPID, CMP, GFR, TSH, FT4, FT3, A1C #### [address] [address] CMP Collected: 11/27/2017 Status: F Source: [place] 10:46 AM [facility] REPOSITORY TYPE CODE TESTS RESULT OUT OF REFERENCE UNITS RANGE LAB GLU(LOINC) 83-110 mg/dL Glucose Level 101 LAB NA(LOINC) 136-146 mEq/L Sodium Level 141 LAB K(LOINC) 3.5-5.1 mEq/L Potassium Level 4.0 LAB CL(LOINC) 98-107 mEq/L Chloride 103 LAB CO2(LOINC) 23-31 mEq/L CO2 29 LAB EBAL(LOINC mEq/L ) Electrolyte Balance 9.0 LAB BUN(LOINC) 7.0-18.0 mg/dL BUN 14.8 LAB CRE(LOINC) 0.6-1.2 mg/dL Creatinine Lvl (s) 0.6 LAB BC(LOINC) 7-27 ratio BUN/Creatinine 25 Ratio LAB CA(LOINC) 8.4-10.2 mg/dL Calcium Lvl 9.1 LAB PROT(LOINC 6.0-8.3 G/dL ) Total Protein 6.6 LAB ALB(LOINC) 3.4-4.8 G/dL Albumin Level 4.1 LAB GLB(LOINC) G/dL Globulin 2.5 LAB AG(LOINC) 1.1-2.5 ratio A/G Ratio 1.6 LAB BILT(LOINC 0.2-1.0 mg/dL ) Bili Total 0.3 LAB AP(LOINC) 40-135 IU/L Alk Phos 43 LAB AST(LOINC) 10-40 IU/L AST/SGOT 16 LAB ALT(LOINC) 10-35 IU/L ALT/SGPT 12 Performed By: #### LIPID, CMP, GFR, TSH, FT4, FT3, A1C #### [address] [address] .GFR Collected: 11/27/2017 Status: F Source: [facility] 10:46 AM [facility] REPOSITORY TYPE CODE TESTS RESULT OUT OF REFERENCE UNITS RANGE LAB GFRAA(LOINC ml/min/1.73 ) sqm GFR >60 Armenian Result Comment: GFR Population mean for , Non- Americans Ages 20-29 = 116 mL/min/1.73 sq.m. Ages 30-39 = 107 mL/min/1.73 sq.m. Ages 40-49 = 99 mL/min/1.73 sq.m. Ages 50-59 = 93 mL/min/1.73 sq.m. Ages 60-69 = 85 mL/min/1.73 sq.m. Ages 70+ = 75 mL/min/1.73 sq.m. Chronic Kidney Disease: Less than 60 mL/min/1.73 square meters End Stage Renal Disease: Less than 15 mL/min/1.73 square meters LAB GFRNO(LOINC) ml/min/1.73sqm GFR Non- >60 Result Comment: GFR Population mean for , Non- Americans Ages 20-29 = 116 mL/min/1.73 sq.m. Ages 30-39 = 107 mL/min/1.73 sq.m. Ages 40-49 = 99 mL/min/1.73 sq.m. Ages 50-59 = 93 mL/min/1.73 sq.m. Ages 60-69 = 85 mL/min/1.73 sq.m. Ages 70+ = 75 mL/min/1.73 sq.m. Chronic Kidney Disease: Less than 60 mL/min/1.73 square meters End Stage Renal Disease: Less than 15 mL/min/1.73 square meters Performed By: #### LIPID, CMP, GFR, TSH, FT4, FT3, A1C #### [address] [address] TSH Collected: 11/27/2017 Status: F Source: [facility] 10:46 AM [facility] REPOSITORY TYPE CODE TESTS RESULT OUT OF RANGE REFERENCE UNITS LAB TSH(LOINC) 0.27-4.20 mcIU/mL TSH 1.85 Performed By: #### LIPID, CMP, GFR, TSH, FT4, FT3, A1C #### [address] [address] FT4 Collected: 11/27/2017 Status: F [facility]:46 AM [facility] REPOSITORY TYPE CODE TESTS RESULT OUT OF RANGE REFERENCE UNITS LAB FT4(LOINC) 0.6-1.7 ng/mL Free T4 1.2 Performed By: #### LIPID, CMP, GFR, TSH, FT4, FT3, A1C #### [address] [address] FT3 Collected: 11/27/2017 Status: F [facility] 10:46 AM [facility] REPOSITORY TYPE CODE TESTS RESULT OUT OF RANGE REFERENCE UNITS LAB FT3(LOINC) 2.3-4.0 pg/mL High Free T3 4.2 Performed By: #### LIPID, CMP, GFR, TSH, FT4, FT3, A1C #### [address] [address] A1C Collected: 11/27/2017 Status: F [facility] 10:46 AM [facility] REPOSITORY TYPE CODE TESTS RESULT OUT OF RANGE REFERENCE UNITS LAB A1C(LOINC) 4.8-5.9 % Hgb A1c 5.5 Performed By: #### LIPID, CMP, GFR, TSH, FT4, FT3, A1C #### [id number] [place], [place] [address] US THYROID Observed: 11/26/2017 Status: F Source: [facility] 2:00 PM [facility] REPOSITORY ORIGINAL Ultrasound Thyroid CLINICAL STATEMENT: NODULE, COMPARISON: 07/31/2017 FINDINGS: Size right thyroid lobe: 4.8 cm Size left thyroid lobe: 4.1 cm Size isthmus: 0.6 cm Texture: Heterogeneous Estimated total number of nodules greater than or equal to 1 cm: 1 Number of spongiform nodules >/= 2 cm not described below (TR1): 0 Number of mixed cystic and solid nodules >/= 1.5 cm not described below (TR2): 0 Nodule#: # 1: Maximum size: 2.7 cm . All dimensions: 2.7 x 1.8 x 2.0 cm Location: Right Mid Composition: solid or almost completely solid: 2 points Echogenicity: hypoechoic: 2 points Shape: wider than tall: 0 points Margins: ill-defined: 0 points Echogenic foci: punctate echogenic foci: 3 points Additional echogenic foci 1: macrocalicfications: 1 point Additional echogenic foci 2: none: 0 points ACR Total Points: >/= 7; ACR TI-RADS risk category: TR5 - highly suspicious nodule. ACR TI-RADS 2017 Category TR 5. ACR TIRADS Recommendation: Ultrasound-guided fine needle aspiration IMPRESSION: 1. Multinodular goiter similar to prior exam. 2. Right-sided nodule with microcalcifications for which FNA is recommended. ACR TI-RADS 2017 Recommendations: TR1(0 points) : No FNA or follow up TR2 (2 points) : No FNA or follow up TR3 (3 points) : FNA if >/= 2.5 cm, follow up if 1.5 - 2.4 cm in 1, 3, and 5 years TR4 (4-6 points) : FNA if >/= 1.5 cm, follow up if 1.0 - 1.4 cm in 1, 2, 3, and 5 years TR5 (>/= 7 points) : FNA if >/= 1.0 cm, follow up if 0.5 - 0.9 cm every year for 5 years *ACR TI-RADS recommends that no more than two nodules with the highest ACR TI-RADS total point should be biopsied and no more than four nodules should be followed. Interpreted By: Silvia ,Gus MD Preliminary Report By: Gus Vega MD Electronically Signed By: Gus Vega MD Dictated Date: 11/26/2017 3:56:07 PM Prelim Date: 11/26/2017 3:56:07 PM Sign Date: 11/26/2017 4:06:30 PM XR CHEST 2 VIEWS Observed: 08/08/2017 Status: F Source: [facility] 1:26 PM [facility] REPOSITORY ORIGINAL XR CHEST 2 VIEWS CLINICAL STATEMENT: Chest pain, shortness of breath COMPARISON: Chest radiograph 06/18/2016 FINDINGS: Evaluation is limited secondary to patient body habitus. Tubing over the left neck extending over the left lateral thorax and likely into the abdomen is new from the prior exam. This likely re presents a ventriculoperitoneal shunt. Cardiac silhouette is within normal limits and unchanged. Mediastinal silhouette is normal. No focal consolidation, pleural effusion, pneumothorax, or vascular con gestion is seen. Spinal stimulator device noted within the midthoracic spine. IMPRESSION: No acute radiographic findings. Tubing over the left neck and chest wall is likely a ventriculoperitoneal shunt or external to the patient. I have personally reviewed the images of this examination and agree with the resident's findings and interpretation. Interpreted By: Jaret Waters MD Preliminary Report By: Dereck Lama DO Electronically Signed By: Jaret Waters MD Dictated Date: 08/08/2017 1:29:44 PM Prelim Date: 08/08/2017 1:33:21 PM Sign Date: 08/08/2017 1:58:26 PM CBC Collected: 08/08/2017 Status: F Source: [facility] 12:41 PM [facility] REPOSITORY TYPE CODE TESTS RESULT OUT OF REFERENCE UNITS RANGE LAB WBC(LOINC) 4.60-10.80 10 3/mcL WBC 4.90 LAB RBCCT(LOINC 4.20-5.40 10 6/mcL ) High RBC 5.66 LAB HGB(LOINC) 12.0-16.0 G/dL Hgb 15.4 LAB HCT(LOINC) 37.0-47.0 % Hct 45.5 LAB MCV(LOINC) 80.0-94.0 fL MCV 80.3 LAB MCH(LOINC) 27.0-31.2 pg MCH 27.1 LAB MCHC(LOINC) 33.0-37.0 G/dL MCHC 33.8 LAB RDW(LOINC) 11.5-14.5 % RDW 14.1 LAB PLT(LOINC) 130-400 10 3/mcL Platelet 150 LAB MPV(LOINC) 7.4-10.4 fL MPV 9.1 Performed By: #### CBC, ADIFF, ANEU, MG, BMP, GFR #### [address] [address] .AUTO DIFF Collected: 08/08/2017 Status: F Source: [facility] 12:41 [facility] REPOSITORY TYPE CODE TESTS RESULT OUT OF REFERENCE UNITS RANGE LAB KRISTIN(LOINC) 37.0-80.0 % Neutrophil % 68.2 LAB LYM(LOINC) 10.0-50.0 % Lymphocyte % 13.6 LAB MON(LOINC) 1.7-13.0 % Monocyte High % 17.3 LAB EO(LOINC) 0.0-7.0 % Eosinophil % 0.1 LAB BAS(LOINC) 0.0-2.5 % Basophil % 0.8 LAB ABLYM(LOIN 0.77-3.85 10 3/mcL C) Low Lymphocyte, 0.70 Absolute LAB BENNY(LOINC 0.15-1.00 10 3/mcL ) Monocyte, 0.90 Absolute LAB AEOS(LOINC 0.00-0.40 10 3/mcL ) Eosinophil, 0.00 Absolute LAB ABAS(LOINC 0.00-0.19 10 3/mcL ) Basophil, 0.00 Absolute Performed By: #### CBC, ADIFF, ANEU, MG, BMP, GFR #### [address] [address] .NEUABS Collected: 08/08/2017 Status: F Source: [facility] 12:41 [facility] REPOSITORY TYPE CODE TESTS RESULT OUT OF REFERENCE UNITS RANGE LAB ANEU(LOINC) 2.85-6.16 10 3/mcL Neutrophil, 3.40 Absolute Performed By: #### CBC, ADIFF, ANEU, MG, BMP, GFR #### [address] [address] MG Collected: 08/08/2017 Status: F Source: [facility] 12:41 [facility] REPOSITORY TYPE CODE TESTS RESULT OUT OF REFERENCE UNITS RANGE LAB MG(LOINC) 1.7-2.5 mg/dL Magnesium Lvl 1.7 Performed By: #### CBC, ADIFF, ANEU, MG, BMP, GFR #### [address] [address] BMP Collected: 08/08/2017 Status: F Source: [facility] 12:41 [facility] REPOSITORY Order Comment: SPECIMEN IS HEMOLYZED. K+ IS AFFECTED. TYPE CODE TESTS RESULT OUT OF REFERENCE UNITS RANGE LAB 1547-9 83-110 mg/dL Low GLUCOSE 79 LAB NA(LOINC) 136-146 mEq/L Sodium Level 137 LAB K(LOINC) 3.5-5.1 mEq/L Potassium Level 4.3 LAB CL(LOINC) 98-107 mEq/L Chloride 99 LAB CO2(LOINC) 23-31 mEq/L CO2 25 LAB EBAL(LOINC mEq/L ) Electrolyte Balance 13.0 LAB BUN(LOINC) 7.0-18.0 mg/dL BUN 15.6 LAB CRE(LOINC) 0.6-1.2 mg/dL Creatinine Lvl (s) 0.8 LAB BC(LOINC) 7-27 ratio BUN/Creatinine 20 Ratio LAB CA(LOINC) 8.4-10.2 mg/dL Calcium Lvl 9.3 Performed By: #### CBC, ADIFF, ANEU, MG, BMP, GFR #### Sally [address] [address] .GFR Collected: 08/08/2017 Status: F Source: [facility] 12:41 [facility] REPOSITORY TYPE CODE TESTS RESULT OUT OF REFERENCE UNITS RANGE LAB GFRAA(LOINC ml/min/1.73 ) sqm GFR 92 Armenian Result Comment: GFR Population mean for , Non- Americans Ages 20-29 = 116 mL/min/1.73 sq.m. Ages 30-39 = 107 mL/min/1.73 sq.m. Ages 40-49 = 99 mL/min/1.73 sq.m. Ages 50-59 = 93 mL/min/1.73 sq.m. Ages 60-69 = 85 mL/min/1.73 sq.m. Ages 70+ = 75 mL/min/1.73 sq.m. Chronic Kidney Disease: Less than 60 mL/min/1.73 square meters End Stage Renal Disease: Less than 15 mL/min/1.73 square meters LAB GFRNO(LOINC) ml/min/1.73sqm GFR Non- >60 Result Comment: GFR Population mean for , Non- Americans Ages 20-29 = 116 mL/min/1.73 sq.m. Ages 30-39 = 107 mL/min/1.73 sq.m. Ages 40-49 = 99 mL/min/1.73 sq.m. Ages 50-59 = 93 mL/min/1.73 sq.m. Ages 60-69 = 85 mL/min/1.73 sq.m. Ages 70+ = 75 mL/min/1.73 sq.m. Chronic Kidney Disease: Less than 60 mL/min/1.73 square meters End Stage Renal Disease: Less than 15 mL/min/1.73 square meters Performed By: #### CBC, ADIFF, ANEU, MG, BMP, GFR #### [place] [address] Observed: 08/08/2017 Status: F Source: [facility] 12:41 PM [facility]OUNDATION REPOSITORY . MICRO - Microbiology PROCEDURE: Rapid Influenza A+B Screen w Cult if Ind [*1] SOURCE: Nasopharyngeal BODY SITE: Nasopharynx COLLECTED DATE/TIME: 08/08/2017 12:41 EDT RECEIVED DATE/TIME: 08/08/2017 12:44 EDT START DATE/TIME: 08/08/2017 12:45 EDT FREE TEXT SOURCE: FINAL REPORTS Final Report [] Verified Date/Time/Personnel: 08/08/2017 13:06 EDT Specimen is negative for the presence of influenza A antigen. . Specimen is negative for the presence of influenza B antigen. . Inadequate specimen collection, improper sample handling and/or low levels of viral shedding may yield a false-negative result. . The optimal specimen type for the Rapid Flu test is a nasopharyngeal wash/aspirate or nasopharyngeal swab. All negative rapid tests for Flu A and Flu B will be confirmed with a Respiratory Id Panel by PCR. . Assay method employs immunofluorescence technology. Performing Locations *1: This test was performed at: [address], [address] Performed By: #### RFLU #### [facility] [address] [place] [address] RESPID Collected: 08/08/2017 Status: F Source: [facility] 12:27 PM [facility] REPOSITORY Order Comment: Order added by [id number] TYPE CODE TESTS RESULT OUT OF RANGE REFERENCE UNITS LAB RESADENO( Not Detected LOINC) Adenovirus Not Detected LAB COVHKU1(L Not Detected OINC) Coronavirus HKU1 Not Detected LAB COVNL63(L Not Detected OINC) Coronavirus NL63 Not Detected LAB VqZ588R(L Not Detected OINC) Coronavirus 229E Not Detected LAB COVOC43(L Not Detected OINC) Coronavirus OC43 Not Detected LAB HMV(LOINC Not Detected ) Human Metapneumovirus Not Detected LAB INFA(LOIN Not Detected C) Influenza A Not Detected LAB INFAB(NIKHIL Not Detected NC) Influenza B Abnormal Detected Result Comment: This organism causes a reportable disease. Infection Control has been notified. Results have been reported to the [place] [facility]. LAB PARAFLU1(LOINC) Not Detected Parainfluenza 1 Not Detected LAB PARAFLU2(LOINC) Not Detected Parainfluenza 2 Not Detected LAB PARAFLU3(LOINC) Not Detected Parainfluenza 3 Not Detected LAB PARAFLU4(LOINC) Not Detected Parainfluenza 4 Not Detected LAB RHINO(LOINC) Not Detected Rhinovirus/Enterovi Not Detected steven LAB RESRSV(LOINC) Not Detected Respiratory Syncytial Virus Not Detected LAB RESMYCO(LOINC) Not Detected Mycoplasma pneumoniae Not Detected LAB RESCHLAM(LOINC) Not Detected Chlamydophila pneumoniae Not Detected LAB RESBORD(LOINC) Not Detected Bordetella Pertussis Not Detected LAB RESBPAR(LOINC) Not Detected Bordetella Parapertussis Not Detected Performed By: #### RESPID #### [place] [id number] US THYROID Observed: 07/31/2017 Status: F Source: [facility] 10:00 AM [facility]OUNDATION REPOSITORY ORIGINAL US THYROID CLINICAL STATEMENT: MULTIPLE THYROID NODULES. COMPARISON: 02/08/2015 through 01/05/2017 FINDINGS: Size right thyroid lobe: 4.4 x 2.2 x 2.1 cm Size left thyroid lobe: 3.3 x 1.2 x 2.0 cm Size isthmus: 0.4 cm Estimated total number of nodules greater than or equal to 1 cm: 2 Nodule 1: Size: 2.5 x 2.0 x 1.4 cm Location: Right Mid Composition: solid or almost completely solid: 2 points Echogenicity: hypoechoic: 2 points Shape: wider than tall: 0 points Margins: ill-defined: 0 points Echogenic foci: punctate echogenic foci: 3 points, macrocalcifications: 1 point ACR Total Points: >/= 7; ACR TI-RADS risk category: TR5 - highly suspicious nodule. Nodule 2: Size: 1.0 x 0.9 x 0.8 cm Location: Right Lower Composition: spongiform: 0 points Echogenicity: hypoechoic: 2 points Shape: wider than tall: 0 points Margins: smooth: 0 points Echogenic foci: large comet tail artefact: 0 points ACR Total Points: 2; ACR TI-RADS risk category: TR2 - nonsuspicious nodule. Assessment is technically difficult of this nodule secondary to technique and posterior location. Additional subcentimeter thyroid nodules are not significant change in size in the previous examination. IMPRESSION: 1. Nodule 1: ACR TI-RADS 2017 Category 5. Recommend: Ultrasound- guided fine needle aspiration. Repeat biopsy is strongly suggested given the suspicious features. 2. Nodule 2: ACR TI-RADS 2017 Category 2. Recommend: Follow- up ultrasound in 1 year. 3. Additional subcentimeter nodules are not significantly changed in size. ACR TI-RADS 2017 Recommendations: TR1: No FNA or follow up TR2: No FNA or follow up TR3: FNA if >/= 2.5 cm, follow up if 1.5 - 2.4 cm in 1, 3, and 5 years TR4: FNA if >/= 1.5 cm, follow up if 1.0 - 1.4 cm in 1, 2, 3, and 5 years TR5: FNA if >/= 1.0 cm, follow up if 0.5 - 0.9 cm every year for 5 years *ACR TI-RADS recommends that no more than two nodules with the highest ACR TI-RADS total point should be biopsied and no more than four nodules should be followed. I have personally reviewed the images of this examination and agree with the resident's findings and interpretation. Interpreted By: Gus Vega MD Preliminary Report By: Delbert Snell DO Electronically Signed By: Gus Vega MD Dictated Date: 07/31/2017 11:15:32 AM Prelim Date: 07/31/2017 1:28:17 PM Sign Date: 07/31/2017 1:31:51 PM LIPID Collected: 07/13/2017 Status: F Source: [facility] 10:26 AM [facility] REPOSITORY TYPE CODE TESTS RESULT OUT OF REFERENCE UNITS RANGE LAB CHOL(LOINC 131-200 mg/dL ) Cholesterol High 212 Result Comment: Cholesterol Reference Interval: Less than 200 Desirable 200-239 Borderline high risk 240 and above High risk LAB TRIG(LOINC) 40-150 mg/dL Triglycerides 99 Result Comment: Triglyceride Reference Interval: Less than 150 Normal 150-199 Borderline high risk 200-499 High risk 500 or higher Very high risk LAB HD(LOINC) 35-90 mg/dL HDL Cholesterol 84 Result Comment: HDL Reference Interval: Less than 40 Low - high risk 60 or above Optimal/lowers risk LAB LDL(LOINC) 0-130 mg/dL LDL Cholesterol 108 Result Comment: LDL is a calculated result and requires a 12-hr fast. LDL Reference Interval: Less than 100 Optimal 100-129 Near or above optimal 130-159 Borderline high risk 160-189 High risk 190 and above Very high risk Performed By: #### LIPID, CMP, GFR, A1C, TSH, FT4, FT3 #### [address] [address] CMP Collected: 07/13/2017 Status: F Source: [facility] 10:26 AM [facility] REPOSITORY TYPE CODE TESTS RESULT OUT OF REFERENCE UNITS RANGE LAB 1547-9 83-110 mg/dL GLUCOSE 92 LAB NA(LOINC) 136-146 mEq/L Sodium Level 141 LAB K(LOINC) 3.5-5.1 mEq/L Potassium Level 4.0 LAB CL(LOINC) 98-107 mEq/L Chloride 102 LAB CO2(LOINC) 23-31 mEq/L CO2 31 LAB EBAL(LOINC mEq/L ) Electrolyte Balance 8.0 LAB BUN(LOINC) 7.0-18.0 mg/dL BUN High 26.4 LAB CRE(LOINC) 0.6-1.2 mg/dL Creatinine Lvl (s) 0.7 LAB BC(LOINC) 7-27 ratio High BUN/Creatinine 38 Ratio LAB CA(LOINC) 8.4-10.2 mg/dL Calcium Lvl 9.2 LAB PROT(LOINC 6.0-8.3 G/dL ) Total Protein 6.9 LAB ALB(LOINC) 3.4-4.8 G/dL Albumin Level 4.1 LAB GLB(LOINC) G/dL Globulin 2.8 LAB AG(LOINC) 1.1-2.5 ratio A/G Ratio 1.5 LAB BILT(LOINC 0.2-1.0 mg/dL ) Bili Total 0.3 LAB AP(LOINC) 40-135 IU/L Alk Phos 40 LAB AST(LOINC) 10-40 IU/L AST/SGOT 16 LAB ALT(LOINC) 10-35 IU/L ALT/SGPT 13 Performed By: #### LIPID, CMP, GFR, A1C, TSH, FT4, FT3 #### [address] [address] .GFR Collected: 07/13/2017 Status: F Source: [facility] 10:26 AM [facility] REPOSITORY TYPE CODE TESTS RESULT OUT OF REFERENCE UNITS RANGE LAB GFRAA(LOINC ml/min/1.73 ) sqm GFR 104 Armenian Result Comment: GFR Population mean for , Non- Americans Ages 20-29 = 116 mL/min/1.73 sq.m. Ages 30-39 = 107 mL/min/1.73 sq.m. Ages 40-49 = 99 mL/min/1.73 sq.m. Ages 50-59 = 93 mL/min/1.73 sq.m. Ages 60-69 = 85 mL/min/1.73 sq.m. Ages 70+ = 75 mL/min/1.73 sq.m. Chronic Kidney Disease: Less than 60 mL/min/1.73 square meters End Stage Renal Disease: Less than 15 mL/min/1.73 square meters LAB GFRNO(LOINC) ml/min/1.73sqm GFR Non- >60 Result Comment: GFR Population mean for , Non- Americans Ages 20-29 = 116 mL/min/1.73 sq.m. Ages 30-39 = 107 mL/min/1.73 sq.m. Ages 40-49 = 99 mL/min/1.73 sq.m. Ages 50-59 = 93 mL/min/1.73 sq.m. Ages 60-69 = 85 mL/min/1.73 sq.m. Ages 70+ = 75 mL/min/1.73 sq.m. Chronic Kidney Disease: Less than 60 mL/min/1.73 square meters End Stage Renal Disease: Less than 15 mL/min/1.73 square meters Performed By: #### LIPID, CMP, GFR, A1C, TSH, FT4, FT3 #### [address] [address] A1C Collected: 07/13/2017 Status: F [facility] AM [facility] REPOSITORY TYPE CODE TESTS RESULT OUT OF RANGE REFERENCE UNITS LAB A1C(LOINC) 4.8-5.9 % Hgb A1c 5.6 Performed By: #### LIPID, CMP, GFR, A1C, TSH, FT4, FT3 #### [address] [address] TSH Collected: 07/13/2017 Status: F Source: [facility] 10:26 AM [facility] REPOSITORY TYPE CODE TESTS RESULT OUT OF RANGE REFERENCE UNITS LAB TSH(LOINC) 0.27-4.20 mcIU/mL TSH 1.07 Performed By: #### LIPID, CMP, GFR, A1C, TSH, FT4, FT3 #### [address] [address] FT4 Collected: 07/13/2017 Status: F Source: [facility] 10:26 AM [facility] REPOSITORY TYPE CODE TESTS RESULT OUT OF RANGE REFERENCE UNITS LAB FT4(LOINC) 0.6-1.7 ng/mL Free T4 1.0 Performed By: #### LIPID, CMP, GFR, A1C, TSH, FT4, FT3 #### [address] [address] FT3 Collected: 07/13/2017 Status: F Source: [facility] 10:26 [facility] REPOSITORY TYPE CODE TESTS RESULT OUT OF RANGE REFERENCE UNITS LAB FT3(LOINC) 2.3-4.0 pg/mL Free T3 3.1 Performed By: #### LIPID, CMP, GFR, A1C, TSH, FT4, FT3 #### Sally [address] [address] ALLERGIES ALLERGIES DATE TYPE / CODE NAME / CODE REACTION SEVERITY SOURCE 05/04/2018 Drug No Known Unknown [facility] Allergy/416 Allergies/F0019 Hospital 372263(SNOM 71570(RXNORM) Repository ED CT) 02/17/2018 DRUG FENTANYL OTHER: SEE [facility] INGREDI/[address] [place] 976854(SNOM Repository ED CT) 07/10/2013 Drug fentanyl/K73762 Vomiting Unknown [facility] Allergy/416 3571(RXNORM) Hospital 300345(SNOM Repository ED CT) ENCOUNTERS ENCOUNTERS ADMIT/DISCHARGE ACCOUNT NUMBER ADMITTING ENCOUNTER LOCATION SOURCE CLASS 06/08/2018 [id number] YOHAN DONG., Inpatient BBuilding:MS Sally DONG. RAISA W Encounter URRoom: [facility] 0236Bed: A Foundation Repository 05/19/2018 [id number] Ambulatory [facility] ding:PT Repository 05/06/2018/05/06/20 [id number] Ambulatory BBuilding:TA [place] [facility] Repository 05/04/2018 [id number] Ambulatory [facility] ding:HPRAD Repository 05/04/2018/05/04/20 [id number] Ambulatory BMSBuilding: [address] Repository 03/08/2018/03/09/20 [id number] ILIA DONG, Ambulatory ABuilding:ME Sally [place] 6ERoom: Health 6707Bed: A Foundation Repository 03/03/2018/03/03/20 [id number] Ambulatory [address] Repository 03/03/2018/03/04/20 [id number] Ambulatory [address] Repository 02/17/2018/02/18/20 [id number] Ambulatory [address] Repository 02/17/2018/02/18/20 [id number] Ambulatory [address] Repository 02/17/2018/02/18/20 [id number] Ambulatory [address] Repository 02/04/2018/09/20/20 [id number] Ambulatory SALLY Sally [facility] ding:RAD Foundation Repository 01/30/2018/01/31/20 [id number] Emergency BBuilding:ER Sally [facility] Repository 01/19/2018/01/24/20 [id number] NICKO DONG, Inpatient BBuilding:MS Sally [address] [place] W Encounter URRoom: Health 0235Bed: A Foundation Repository 01/12/2018 [id number] Ambulatory ABuilding:LA Sally [facility] Repository 01/08/2018 [id number] Ambulatory ABuilding:SD Sally U [facility] Repository 12/22/2017 [id number] Ambulatory [facility] ding:LAB Repository 12/14/2017/12/15/19 [id number] Ambulatory SALLY Sally [address] [place] [address] ding:RAD Foundation Repository 11/30/2017 [id number] Ambulatory BBuilding:RA Sally D [facility] Repository 11/27/2017/11/28/19 [id number] Ambulatory SALLY Sally [address] [place] [address] ding:RAD [facility] Repository 08/08/2017/08/09/19 [id number] Emergency BBuilding:ER Sally 18 O [facility] Repository 07/31/2017/08/01/19 [id number] Ambulatory SALLY Sally [address] [place] [address] ding:RAD [facility] Repository 07/15/2017/09/01/19 [id number] Ambulatory BBuilding:PH Sally [facility] Repository 07/13/2017/07/13/19 [id number] Ambulatory SALLY Sally [address] [place] [address] ding:OLAB [facility] Repository 07/08/2017/07/08/19 [id number] Ambulatory SALLY Sally [address] [place] [address] ding:[facility] Repository PAYERS PAYERS ENCOUNTER GUARANTOR PAYER SUBSCRIBER SOURCE 06/08/2018 LAUREEN Hester [facility] HUNTERDOB: Insurance:MEDICARE HUNTERDOB: [facility] [id number] PART A INSCOP[employer]icy [id number] Repository [place] Number: [address] [place], [place] [id number] [place] [address]~KARINA@ Date:2018-06-08 472[address]Slf: ([phone]) [employer].RACHEL~[id number]@ [id number] [phone] [email or web address]: Name:MMail Code AG (HP)Tel: (000) [address] (WP) (HP)Tel: ([phone], [place] [phone] (WP) [address]YF: 06/08/2018 Secondary LAUREEN [facility] Insurance[facility] PART B [facility] [id number] Rep[facility] Number: [facility] [id number] [place] Date:2018-06-08 [address]Ipi: [phone] [id number] Name:PCGS ()Tel: 000) Uhjmeshxscrotv LLCPO 000-0000 (WP) [address] [place] [address]BN: 06/08/2018 Tertiary LAUREEN [facility] [id number] Number: [id number] Repository [id number] [address] [place] Date:2018-06-08 [place], [place] 1332-04-59Nvqa [address]Ynd: (330) Name:INSTRUCTION ASSISTANT PRINCIP[employer] [phone] [id number], [place] ()Tel: [phone]: ([phone] 05/19/2018 LAUREEN E Primary LAUREEN E Dianelys [id number] Insurance:[facility] PART A [facility] [id number] [place], [place] Number: Repository [id number]: [phone] [id number] () Date:2018-05-04 05/19/2018 Secondary LAUREEN E Dianelys [facility] Number: [id number] Hospital [id number] Repository Date:6552-11-73QC [address]WNZJMOMOFPD, [place] [address]ZW: 05/19/2018 Tertiary NOT GIVENUNK [place] Insurance:SELF PAY [facility] Number: Effective Repository Date:2018-05-04 05/06/2018 LAUREEN E Primary LAUREEN E [facility] HUNTERDOB: Insurance:MEDICARE HUNTERDOB: [facility] [id number] PART B INSCOPolicy [id number] Repository [place] Number: [address] [place], [place] [id number] [place] [address]~KARINA@ Date:2018-05-06 09881Adh: ([phone]) Glaxstar~[id number]@ [id number] [phone] AIL.COMTel: Name:[facility] ()Tel: (000) [facility] 000-0000 (WP) ()Tel: 999) [address] [address]Hfahiwjke, [phone] (WP) [place] [address]TE: 05/06/2018 Secondary LAUREENLAINEY Adam [facility] Insurance:[employer] HUNTERDOB: [facility] [id number] Number: [id number] Repository [id number] [address] [place] Date:2018-05-06 - [place], [place] [id number] [address]Dmp: (808) Name:[facility] [phone] [id number] [place] ()Tel: [phone]: ([phone] 05/04/2018 LAUREEN E Primary LAUREEN E Dianelys [id number] Insurance:MEDICARE HUNTERDOB: [facility] [place] PART A BPolicy [id number] Number: Repository [address]Xoq: [phone] [id number] [phone] () Date:2018-05-04 05/04/2018 Secondary LAUREEN E Dianelys Insurance:CIGNAPoly KANEOHEDOB: [facility] Number: [id number] Hospital [id number] Repository Date:1776-21-64[address]BKOXSJUZVYO, [place] [address]HL: 05/04/2018 Tertiary NOT GIVENUNK [place] Insurance:SELF PAY [facility] Number: Effective Repository Date:2018-05-04 05/04/2018 LAUREEN E Primary LAUREEN E [place] [id number] Insurance:MEDICARE HUNTERDOB: Community [place] PART A BPolicy [id number], [place] Number: Repository [address]Syw: [phone] [id number] [phone] () Date:2018-04-21 05/04/2018 Secondary LAUREEN E [place] Insurance:CIGNAPoly KANEOHEDOB: Community Number: [id number] Hospital [id number] Repository Date:6738-10-06JV [address]HIFMHWKKVUQ, [place] [address]OF: 05/04/2018 Tertiary NOT GIVENUNK [place] Insurance:SELF PAY [facility] Number: Effective Repository Date:2018-05-03 03/08/2018 LAUREEN E Primary LAUREEN E [facility] HUNTERDOB: Insurance:MEDICARE HUNTERDOB: [facility] [id number] PART [facility] Number: [id number] Repository [place] [id number] [address] [place], [place] Date:2018-02-16 [place] [address]~KARINA@ 0547-07-64Twld 04[address]Xwa: (128) Maria Del Rosario: Name:[facility] [phone] Administrators LLCPO (HP)Tel: (000) (HP)Tel: (999) [address]Vqpaieaiv, 000-0000 (WP) [phone] () [place] [address]KH: 03/08/2018 Secondary LAUREEN E [facility] Insurance:[facility] HUNTERDOB: [facility] [id number] Number: [id number] Repository [id number] [address] [place] Date:2018-02-16 [place] 8091-04-19Xkiq [address]Jkw: (330) Name:MERCEDES CASIANO [phone] [id number], [place] (HP)Tel: [phone]: (WP) [phone] 02/04/2018 LAUREEN E Primary LAUREEN E [facility] HUNTERDOB: Insurance:MEDICARE HUNTERDOB: [facility] PART BPolicy Number: [id number] Repository [address] [id number] 7 [place], [place] Date:2018-02-04 [place] [address]~KARINA@ [id number]: (330) Maria Del Rosario: Name:RISSA [phone] Administrators LLCP[employer] (HP)Tel: ([phone]) (HP)Tel: [phone] [phone], 000-0000 (WP) [phone] (WP) [place] [address]ZS: 02/04/2018 Secondary LAUREEN E [facility] HUNTERDOB: [facility] [id number] Number: [id number] Repository [id number] [address] Date:2018-02-04 [place], [place] 1038-03-13Xwyw [id number]: (330) Name:MERCEDES CASIANO [phone] [id number], [place] (HP)Tel: [phone]: (WP) [phone] 01/30/2018 LAUREEN E Primary LAUREEN E [facility] HUNTERDOB: Insurance:MEDICARE HUNTERDOB: [facility] PART BPolicy Number: [id number] Repository [address] [id number] 7 [place], [place] Date:2018-01-30 [place] [address]~KARINA@ 9727-05-01Wcvn 57652Qyx: (330) Maria Del Rosario: [facility] [place] [phone] Administrators LLCPO (HP)Tel: (000) (HP)Tel: (999) [address]Shdhqpdgc, 000-0000 (WP) [phone] (WP) [place] [address]WN: 01/30/2018 Secondary [facility] Insurance:[place] HUNTERDOB: [facility] [id number] Number: [id number] Repository [id number] 7 [address] Date:2018-01-30 [place], [place] 0520-01-31Oxjx [address]Mqz: (330) Name:[address] [place] [address] (HP)Tel: [phone]) [phone]: (WP) [phone] 01/19/2018 LAUREEN E Primary [facility] HUNTERDOB: Insurance:MEDICARE KANEOHEDOB: [facility] PART APolicy Number: [id number] Repository [address] [id number] [address] [place], [place] Date:2018-01-19 [place] [address]~KARINA@ 2801-28-38Wurk 776[address]Wlv: (330) Maria Del Rosario: [id number] [address] (HP)Tel: (000) (HP)Tel: (999) 598379Zlfbdgal, [place] 000-0000 (WP) [phone] (WP) [address]VO: 01/19/2018 Secondary [facility] Insurance:MEDICARE HUNTERDOB: [facility] PART BPolicy Number: [id number] Repository [id number] 7 [address] Date:2018-01-19 [place], [place] 6949-78-53Cgap 20103Kup: (330) Name:[facility] [place] [phone] Administrators LLCPO (HP)Tel: (000) [address] [address]Zscmgbqpb, 000-0000 (WP) [place] [address]RE: 01/19/2018 Tertiary [facility] Insurance:[place] HUNTERDOB: [facility] [id number] Number: [id number] Repository [id number] [address] Date:2018-01-19 [place], [place] 2165-34-96Pugu 25457Zzk: (330) Name:MERCEDES CASIANO [id number], [place] (HP)Tel: [phone]: (WP) [phone] 01/12/2018 [facility] Insurance:MEDICARE HUNTERDOB: [facility] PART BPolicy Number: [id number] Repository [address] [id number] 7 [place], [place] Date:2018-01-07 [place], [place] [address]ROSA MARIA@ 6271-06-99Dhji 01685Exe: (330) AILTez: Name:[facility] [phone] Administrators LLCPO (HP)Tel: (000) (HP)Tel: (999) [address] [address]Dygvvbxge, 000-0000 (WP) [phone] (WP) [place] [address]CS: 01/12/2018 Secondary [facility] [id number] Number: [id number] Repository [id number] [address] Date:2018-01-07 [place], [place] 9763-12-51Ckgy [address]Ryy: (330) Name:[facility] [place] 682-[address] [place] [address] (HP)Tel: [phone]: (WP) [phone] 01/08/2018 [facility] KANEOHEDOB: [facility] PART BPolicy Number: [id number] Repository [address] [id number] 7 [place], [place] Date:2018-01-07 [place], [place] [address]ROSA MARIA@ 0499-87-78Sddx 336[address]Oal: (330) AILTez: Name:[facility] [place] 682-[employer] (HP)Tel: (000) (HP)Tel: (999) [address] [address]Sqxmbdfob, 000-0000 (WP) [phone] (WP) [place] [address]ZZ: 01/08/2018 Secondary [facility] E [facility] Insurance:[facility] HUNTERDOB: [facility] [id number] Number: [id number] Repository [id number] [address] Date:2018-01-07 - [place], [place] 5580-06-99Dfjz [address]Vzj: (330) Name:MERCEDES CASIANO [id number] 376[address]Nzdaxkprhmq [place] ()Tel: [phone]: (WP) [phone] 12/22/2017 Laureen E Primary LAUREEN E [place] [id number] Insurance:MEDICARE HUNTERDOB: [facility] PART A BPolicy [id number] Number: Repository [address]Rnc: 330) [id number] 20117 () Date:2017-12-22 12/22/2017 Secondary Laureen E [facility]ianelys [facility] HunterDOB: [facility] Number: [id number] Hospital [id number] Repository Date:0385-14-87[address]XLIXNJZKA[address]U, [place] [address]TU: 12/22/2017 Tertiary NOT GIVENUNK [place] Insurance:SELF PAY [facility] Number: Effective Repository Date:2017-12-22 12/14/2017 LAUREEN E Primary [facility] HUNTERDOB: Insurance:MEDICARE HUNTERDOB: [facility] [id number] PART BPolicy Number: [id number] Repository [address] [id number] [address] [place], [place] Date:2017-12-14 [place], [place] [address]ROSA MARIA@ 7038-60-43Samy [address]Lzf: (330) AILGorgeCOMTel: Name:RISSA [phone] Administrators LLCPO (HP)Tel: (000) (HP)Tel: (999) [address] [address]Udydfrpna, 000-0000 (WP) [phone] (WP) [place] [address]YD: 12/14/2017 Secondary [facility] Insurance:[place] HUNTERDOB: [facility] [id number] Number: [id number] Repository [id number] 7 [address] Date:2017-12-14 - [place] 0931-01-84Dict [address]Vlh: (330) Name:MERCEDES Clemons-0117 [id number], [place] ()Tel: [phone]: (WP) [phone] 11/30/2017 LAUREEN E Primary [facility] E [facility] HUNTERDOB: Insurance:MEDICARE HUNTERDOB: [facility] PART BPolicy Number: [id number] Repository [address] [id number] [address] [place], [place] Date:2017-11-30 [place] [address]~KARINA@ 1423-28-92Nzvp 626[address]Xyg: (330) Maria Del Rosario: Name:RISSA [phone] Administrators LLCPO (HP)Tel: (000) (HP)Tel: (999) [address] [address]Iclgzftvc, 000-0000 (WP) [phone] (WP) [place] [address]XW: 11/30/2017 Secondary [facility] Insurance:[place] HUNTERDOB: [facility] [id number] Number: [id number] Repository [id number] 7 [address] Date:2017-11-30 [place], [place] 0856-62-61Namo [address]Xbz: (330) Name:MERCEDES CASIANO 682-0117 [id number], [place] (HP)Tel: 000) [phone]: (WP) [phone] 11/27/2017 LAUREEN E Primary [facility] HUNTERDOB: Insurance:MEDICARE HUNTERDOB: [facility] PART BPolicy Number: [id number] Repository [address] [id number] 7 [place], [place] Date:2017-11-25 [place] [address]~KARINA@ 8848-76-00Sczc 706[address]Gxc: (330) Maria Del Rosario: Name:RISSA 682-0117 Administrators LLCPO (HP)Tel: (000) (HP)Tel: (999) [address] [address]Mxkdvhclr, 000-0000 (WP) [phone] (WP) [place] [address]BN: 11/27/2017 Secondary [facility] E [facility] Insurance[facility] HUNTERDOB: [facility] [id number] Number: [id number] Repository [id number] [address] Date:2017-11-25 [place], [place] 2205-78-93Yxbu [address]Otb: (330) Name:[place] 682-0117 [address]Xnfsuewwvnh [place] (HP)Tel: [phone]) [phone]: (WP) [phone] 08/08/2017 LAUREEN E Primary [facility] HUNTERDOB: Insurance:MEDICARE HUNTERDOB: [facility] PART BPolicy Number: [id number] Repository [address] [id number] 7 [place], [place] Date:2017-08-08 [place] [address]~KARINA@ 7034-03-68Nxpk 860[address]Igz: (330) Maria Del Rosario: Name:RISSA 682-0117 Administrators LLCPO (HP)Tel: (000) (HP)Tel: (999) [address] [address]Piywmpgdl, 000-0000 (WP) [phone] (WP) [place] [address]EX: 08/08/2017 Secondary [facility] E [facility] Insurance:[facility] HUNTERDOB: [facility] [id number] Number: [id number] Repository [id number] 7 [address] Date:2017-08-08 [place], [place] 9974-01-86Qikn [address]Ock: (330) Name:MERCEDES CASIANO 682-0117 [address]36[address]Izrisgjtqtg, [place] (HP)Tel: [phone]) [phone]: (WP) [phone] 07/31/2017 [facility] E [facility] HUNTERDOB: [facility] PART BPolicy Number: [id number] Repository [address] [id number] 7 [place], [place] Date:2017-07-13 [place] [address]~KARINA@ 1114-61-39Zaqn 549[address]Kgc: (330) ELVIAel: Name:[facility] 682-0117 Administrators LLCPO (HP)Tel: (000) (HP)Tel: (999) [address] [address]Gaokgfajx, 000-0000 (WP) [phone] (WP) [place] [address]GK: 07/15/2017 [facility]: Insurance:MEDICARE HUNTERDOB: [facility] PART BPolicy Number: [id number] Repository [address] [id number] 7 [place], [place] Date:2017-07-08 [place] [address]~KARINA@ 0496-10-41Vyno 87[address]Hel: (330) Maria Del Rosario: Name:[facility] 682-0117 Administrators LLCPO (HP)Tel: (000) (HP)Tel: (999) [address] [address]Pjqxpjzoa, 000-0000 (WP) [phone] (WP) [place] [address]OA: 07/15/2017 Secondary [facility] E [facility] Insurance:CIGNA HUNTERDOB: [facility] MISCPolicy Number: [id number] Repository [id number] [address] Date:2017-07-15 [place], [place] 6719-11-46Tzen [address]Sum: (330) Name:[id number]: 682-0117 (HP) (WP) 07/13/2017 [facility] HUNTERDOB: [facility] PART BPolicy Number: [id number] Repository [address] [id number] 7 [place], [place] Date:2017-07-13 [place] [address]~KARINA@ 1806-45-38Vtad 08655Lvp: (330) Maria Del Rosario: Name:[facility] 682-0117 Administrators LLCPO (HP)Tel: (000) (HP)Tel: (999) [address] [address]33[address]Vudvmjgkz, 000-0000 (WP) [phone] (WP) [place] [address]RD: 07/08/2017 LA[facility]EN E [facility]: Insurance:[facility]ICARE HUNTERDOB: [facility] PART BPolicy Number: [id number] Repository [address] [id number] 7 [place], [place] Date:2017-07-08 [place] [address]~KARINA@ 4716-13-57Jeja 355[address]Ios: (330) Maria Del Rosario: Name:[facility] [id number] Administrators LLCPO (HP)Tel: (000) (HP)Tel: (999) [address] 011[address]Xqafcynpx, 000-0000 (WP) [phone] (WP) [place] [address]SB:
== END ==
PROVIDERS: Family Provider Preventive Medicine Occupational Medicine; PCP Preventive Medicine Occupational Medicine; Referring Provider Orthopaedic Surgery; Visit Provider Orthopaedic Surgery
DX: M19.012 Primary osteoarthritis, left shoulder (principal)
CPT/HCPCS: 73030